=== PATIENT | female | born 1940 | race Caucasian/White ===

== ENCOUNTER → 2016-04-09 | Outpatient (CLI) | payer MEDICARE, BC ==
--- NOTE | 2016-04-10 10:49 | MM ---
Reason for exam: screening (asymptomatic). Last mammogram was performed 4 years and 6 months ago. History: Patient is postmenopausal. Family history of premenopausal breast cancer in mother. Benign stereotactic core biopsy of the right breast, May 10, 1998. Benign core biopsy of the right breast. 2 benign excisional biopsies of the right breast. Physical Findings: A clinical breast exam by your physician is recommended on an annual basis and results should be correlated with mammographic findings. MG 3D Screening Mammo W/Cad Bilateral CC and MLO view(s) were taken. Prior study comparison: October 15, 2011, bilateral digital screening mammo w/CAD. October 07, 2010, bilateral digital screening mammo w/CAD. Finding #1: There is a 5 mm high density, irregular mass in the left breast. Finding #2: There are typically benign calcifications in both breasts. Previous mammotome biopsy in the right breast. There is a chronic nodularity in the right breast, stable. ASSESSMENT: Incomplete: need additional imaging evaluation, BI-RAD 0 RECOMMENDATION: Special view mammogram of the left breast. If lesion persists on supplemental views, image directed ultrasound is recommended. [facility] will attempt to contact patient to return for supplemental views and ultrasound if indicated.
== END ==
LOC: RADMAMWWP 11:44
PROVIDERS: ATTEND Family Medicine
DX: Z12.31 Encounter for screening mammogram for malignant neoplasm of breast (principal); R92.8 Other abnormal and inconclusive findings on diagnostic imaging of breast
CPT/HCPCS: 77063; G0202

== ENCOUNTER → 2016-04-11 | Outpatient (CLI) | payer MEDICARE, BC ==
--- NOTE | 2016-04-11 08:52 | MM ---
Reason for exam: additional evaluation requested from abnormal screening. Last mammogram was performed less than 1 month ago. History: Patient is postmenopausal. Family history of premenopausal breast cancer in mother. Benign stereotactic core biopsy of the right breast, May 10, 1998. Benign core biopsy of the right breast. 2 benign excisional biopsies of the right breast. Physical Findings: Nurse did not find any significant physical abnormalities on exam. MG 3D Work Up W/Cad LT ML, XCCM, and spot compression CC view(s) were taken of the left breast. Prior study comparison: April 09, 2016, bilateral MG 3d screening mammo w/cad. October 15, 2011, bilateral digital screening mammo w/CAD. Density in question is less conspicuous for which a 6 month follow up is recommended. These results were verbally communicated with the patient and result sheet given to the patient on 04/11/16. ASSESSMENT: Probably benign, BI-RAD 3 RECOMMENDATION: Follow-up diagnostic mammogram of the left breast in 6 months.
== END | disposition home or self-care (01) ==
LOC: RADMAMWWP 07:30
PROVIDERS: ATTEND Family Medicine
DX: R92.8 Other abnormal and inconclusive findings on diagnostic imaging of breast (principal)
CPT/HCPCS: G0206; G0279

== ENCOUNTER → 2016-10-15 | Outpatient (CLI) | payer MEDICARE, BC ==
--- NOTE | 2016-10-15 10:30 | MM ---
Reason for exam: follow-up at short interval from prior study. Last mammogram was performed 6 months ago. History: Patient is postmenopausal. Family history of premenopausal breast cancer in mother. Benign stereotactic core biopsy of the right breast, May 10, 1998. Benign core biopsy of the right breast. 2 benign excisional biopsies of the right breast. Physical Findings: Nurse did not find any significant physical abnormalities on exam. MG 3D Diag Mammo W/Cad LT CC and MLO view(s) were taken of the left breast. Prior study comparison: April 11, 2016, left breast MG 3d work up w/cad LT. April 09, 2016, bilateral MG 3d screening mammo w/cad. October 15, 2011, bilateral digital screening mammo w/CAD. There are scattered fibroglandular densities. Finding: There are few typically benign round calcifications in the left breast. Asymmetric breast tissue in the left central position, stable. These results were verbally communicated with the patient and result sheet given to the patient on 10/15/16. ASSESSMENT: Benign, BI-RAD 2 RECOMMENDATION: Return to routine screening mammogram schedule for both breasts. Back on schedule.
== END ==
LOC: RADMAMWWP 08:57
PROVIDERS: ATTEND Family Medicine
DX: R92.8 Other abnormal and inconclusive findings on diagnostic imaging of breast (principal)
CPT/HCPCS: G0206; G0279

== ENCOUNTER → 2017-04-29 | Outpatient (CLI) | payer MEDICARE, BC ==
--- NOTE | 2017-04-29 17:20 | US ---
EXAMINATION TYPE: US kidneys/renal and bladder DATE OF EXAM: 04/29/2017 COMPARISON: NONE CLINICAL HISTORY: CKD N18.9. CKD EXAM MEASUREMENTS: Right Kidney: 11.0 x 4.2 x 4.7 cm Left Kidney: 11.1 x 5.4 x 3.9 cm Right Kidney: possible parapelvic cystic area = 1.5cm Left Kidney: lobulated contour Bladder: not fully distended, appears wnl Bilateral Jets seen: yes CONCLUSION: There is a cyst in the interpolar right kidney. No evidence of solid renal mass. No evidence of renal obstruction.
== END | disposition home or self-care (01) ==
LOC: RADUSWWP 15:58
PROVIDERS: ATTEND Family Medicine
DX: N28.1 Cyst of kidney, acquired (principal)
CPT/HCPCS: 76770

== ENCOUNTER 2018-12-22 12:15 | Inpatient (IN) | payer MEDICARE, BC ==
--- NOTE | 2018-12-22 13:34 | ED ---
SOB HPI - General Chief Complaint: Shortness of Breath Stated Complaint: Chest Pain Time Seen by Provider: 12/22/18 12:40 Source: patient, RN notes reviewed, old records reviewed Mode of arrival: wheelchair Limitations: no limitations - History of Present Illness Initial Comments: This is a 70-year-old female sent in from with his office for evaluation today. Patient presents to us today for evaluation regards to shortness of breath and chest pain. Patient had EKG which was unchanged from her normal EKG at doctor's office this DrDale Elena is sent patient to emergency room. No history of high blood pressure does have high cholesterol nonsmoker. No significant family history of heart disease. No recent cardiac evaluation. Patient denies recent cough or congestion no significant recent fatigue. Patient currently denies shortness of breath or chest pain while sitting still in the chair, symptoms are with exertion MD Complaint: shortness of breath, chest pain -: days(s) Severity: mild Severity scale (1-10): 3 Quality: aching Consistency: intermittent, now resolved Improves With: nothing Worsens With: exertion Associated Symptoms: chest pain, pain with inspiration Treatments Prior to Arrival: none - Related Data Home Medications Medication Instructions Recorded Confirmed ALPRAZolam [Xanax] 1 mg PO TID PRN 12/22/18 12/22/18 Cyclobenzaprine HCl 10 mg PO TID PRN 12/22/18 12/22/18 FLUoxetine HCL [PROzac] 40 mg PO HS 12/22/18 12/22/18 HYDROcodone/APAP 7.5-325MG [[place] 1 tab PO DAILY PRN 12/22/18 12/22/18 7.5-325] Ibuprofen 800 mg PO QID PRN 12/22/18 12/22/18 Simvastatin 40 mg PO HS 12/22/18 12/22/18 Allergies Allergy/AdvReac Type Severity Reaction Status Date / Time Iodinated Contrast Media Allergy Rash/Hives Verified 12/22/18 13:08 Review of Systems ROS Statement: Those systems with pertinent positive or pertinent negative responses have been documented in the HPI. ROS Other: All systems not noted in ROS Statement are negative. Past Medical History Additional Past Medical History / Comment(s): chronic back pain History of Any Multi-Drug Resistant Organisms: None Reported Past Surgical History: Hysterectomy, Tonsillectomy Past Psychological History: Anxiety Smoking Status: Current every day smoker Past Alcohol Use History: Occasional Past Drug Use History: None Reported General Exam Limitations: no limitations General appearance: alert, in no apparent distress Head exam: Present: atraumatic, normocephalic, normal inspection Eye exam: Present: normal appearance, PERRL, EOMI. Absent: scleral icterus, conjunctival injection, periorbital swelling ENT exam: Present: normal exam, mucous membranes moist Neck exam: Present: normal inspection. Absent: tenderness, meningismus, lymphadenopathy Respiratory exam: Present: normal lung sounds bilaterally. Absent: respiratory distress, wheezes, rales, rhonchi, stridor Cardiovascular Exam: Present: regular rate, normal rhythm, normal heart sounds. Absent: systolic murmur, diastolic murmur, rubs, gallop, clicks GI/Abdominal exam: Present: soft, normal bowel sounds. Absent: distended, tenderness, guarding, rebound, rigid Extremities exam: Present: normal inspection, full ROM, normal capillary refill. Absent: tenderness, pedal edema, joint swelling, calf tenderness Back exam: Present: normal inspection Neurological exam: Present: alert, oriented X3, CN II-XII intact Psychiatric exam: Present: normal affect, normal mood Skin exam: Present: warm, dry, intact, normal color. Absent: rash Course Vital Signs 12/22/18 12/22/18 12/22/18 12:20 12:43 12:46 Temperature 97.7 F Pulse Rate 66 68 Respiratory 18 27 H 16 Rate Blood Pressure 87/58 109/66 O2 Sat by Pulse 98 99 Oximetry 12/22/18 12/22/18 12/22/18 12:50 13:20 13:30 Temperature Pulse Rate 58 L 52 L 66 Respiratory 22 20 20 Rate Blood Pressure 103/66 108/73 102/74 O2 Sat by Pulse 96 98 95 Oximetry 12/22/18 12/22/18 12/22/18 13:40 13:50 14:00 Temperature Pulse Rate 55 L 61 61 Respiratory 14 18 20 Rate Blood Pressure 95/73 113/73 120/76 O2 Sat by Pulse 97 97 94 L Oximetry 12/22/18 14:10 Temperature Pulse Rate 65 Respiratory 20 Rate Blood Pressure 95/72 O2 Sat by Pulse 96 Oximetry - Reevaluation(s) Reevaluation #1: 12/22/18 13:46 Medical records reviewed Reevaluation #2: 12/22/18 16:[address] Mann, he did come to ER to evaluate patient requesting echo and will take patient to the [facility] Reevaluation #3: 12/22/18 16:17 Does appear for further questioning 2 days ago patient had an episode where she was passed out and had some chest pain this is likely what she sustained her cardiac event Reevaluation #4: 12/22/18 16:18 The patient updated on results and questions answered - Consultations Consultation #1: Spoke with Dr. Moreno and who is aware of patient's lab values an admission Medical Decision Making - Medical Decision Making 78 female the ER for evaluation of weakness, patient was sent in for evaluation regarding abnormal outpatient EKG. Patient is significantly elevated troponin here in the ER cardiology will take patient to laborer hoisting for subacute [place]. - Lab Data Result diagrams: 12/22/18 13:29 12/22/18 13:29 Lab Results 12/22/18 12/22/18 12/22/18 Range/Units 13:29 13:29 13:29 WBC 11.1 H (3.8-10.6) k/uL RBC 3.85 (3.80-5.40) m/uL Hgb 12.1 (11.4-16.0) gm/dL Hct 36.4 (34.0-46.0) % MCV 94.7 (80.0-100.0) fL MCH 31.4 (25.0-35.0) pg MCHC 33.1 (31.0-37.0) g/dL RDW 12.9 (11.5-15.5) % Plt Count 291 (150-450) k/uL Neutrophils % 75 % Lymphocytes % 16 % Monocytes % 6 % Eosinophils % 0 % Basophils % 0 % Neutrophils # 8.3 H (1.3-7.7) k/uL Lymphocytes # 1.8 (1.0-4.8) k/uL Monocytes # 0.7 (0-1.0) k/uL Eosinophils # 0.1 (0-0.7) k/uL Basophils # 0.0 (0-0.2) k/uL PT (9.0-12.0) sec INR (<1.2) APTT (22.0-30.0) sec Sodium 136 L (137-145) mmol/L Potassium 4.3 (3.5-5.1) mmol/L Chloride 105 (98-107) mmol/L Carbon Dioxide 20 L (22-30) mmol/L Anion Gap 11 mmol/L BUN 28 H (7-17) mg/dL Creatinine 1.57 H (0.52-1.04) mg/dL Est GFR (CKD-EPI)AfAm 36 (>60 ml/min/1.73 sqM) Est GFR (CKD-EPI)NonAf 31 (>60 ml/min/1.73 sqM) Glucose 109 H (74-99) mg/dL Calcium 9.6 (8.4-10.2) mg/dL Magnesium 2.2 (1.6-2.3) mg/dL Total Bilirubin 0.7 (0.2-1.3) mg/dL AST 116 H (14-36) U/L ALT 54 H (9-52) U/L Alkaline Phosphatase 87 (38-126) U/L Creatine Kinase 825 H (30-135) U/L CK-MB (CK-2) (0.0-2.4) ng/mL Troponin I (0.000-0.034) ng/mL NT-Pro-B Natriuret Pep 7500 pg/mL Total Protein 7.0 (6.3-8.2) g/dL Albumin 4.3 (3.5-5.0) g/dL 12/22/18 12/22/18 12/22/18 Range/Units 13:29 13:29 13:29 WBC (3.8-10.6) k/uL RBC (3.80-5.40) m/uL Hgb (11.4-16.0) gm/dL Hct (34.0-46.0) % MCV (80.0-100.0) fL MCH (25.0-35.0) pg MCHC (31.0-37.0) g/dL RDW (11.5-15.5) % Plt Count (150-450) k/uL Neutrophils % % Lymphocytes % % Monocytes % % Eosinophils % % Basophils % % Neutrophils # (1.3-7.7) k/uL Lymphocytes # (1.0-4.8) k/uL Monocytes # (0-1.0) k/uL Eosinophils # (0-0.7) k/uL Basophils # (0-0.2) k/uL PT 9.9 (9.0-12.0) sec INR 0.9 (<1.2) APTT 24.8 (22.0-30.0) sec Sodium (137-145) mmol/L Potassium (3.5-5.1) mmol/L Chloride (98-107) mmol/L Carbon Dioxide (22-30) mmol/L Anion Gap mmol/L BUN (7-17) mg/dL Creatinine (0.52-1.04) mg/dL Est GFR (CKD-EPI)AfAm (>60 ml/min/1.73 sqM) Est GFR (CKD-EPI)NonAf (>60 ml/min/1.73 sqM) Glucose (74-99) mg/dL Calcium (8.4-10.2) mg/dL Magnesium (1.6-2.3) mg/dL Total Bilirubin (0.2-1.3) mg/dL AST (14-36) U/L ALT (9-52) U/L Alkaline Phosphatase (38-126) U/L Creatine Kinase (30-135) U/L CK-MB (CK-2) 39.9 H (0.0-2.4) ng/mL Troponin I 19.600 H* (0.000-0.034) ng/mL NT-Pro-B Natriuret Pep pg/mL Total Protein (6.3-8.2) g/dL Albumin (3.5-5.0) g/dL - EKG Data -: EKG Interpreted by Me (EKG shows junctional rhythm rate of 65, QRS 92, QTc 4:30) - Radiology Data Radiology results: report reviewed (Chest x-rays negative for acute disease), image reviewed Critical Care Time Critical Care Time: Yes Total Critical Care Time: 31 Disposition Clinical Impression: Acute [place], inferior wall, NSTEMI (non-ST elevated myocardial infarction) Disposition: ADMITTED IP TO THIS [facility] Condition: Serious Is patient prescribed a controlled substance at d/c from ED?: No Referrals: Geovanni Elena MD [Primary Care Provider] - 1-2 days
[2018-12-22] MEDS ORDERED: SODIUM CHLORIDE 0.9% 1,000 ML IV STA (13:39)
[2018-12-22 13:51] LABS: Basophils % (A) 0 %; Eosinophils # (A) 0.1 k/uL (0-0.7); Eosinophils % (A) 0 %; HCT 36.4 % (34.0-46.0); HGB 12.1 gm/dL (11.4-16.0); Lymphocytes # (A) 1.8 k/uL (1.0-4.8); Lymphocytes % (A) 16 %; MCH 31.4 pg (25.0-35.0); MCHC 33.1 g/dL (31.0-37.0); MCV 94.7 fL (80.0-100.0); Mean Platelet Volume 6.6; Monocytes # (A) 0.7 k/uL (0-1.0); Monocytes % (A) 6 %; Neutrophils # (A) 8.3 k/uL (1.3-7.7); Neutrophils % (A) 75 %; Platelet Count 291 k/uL (150-450); RBC 3.85 m/uL (3.80-5.40); RDW 12.9 % (11.5-15.5); WBC 11.1 k/uL (3.8-10.6)
[2018-12-22 14:01] LABS: Albumin 4.3 g/dL (3.5-5.0); Calcium 9.6 mg/dL (8.4-10.2); Magnesium 2.2 mg/dL (1.6-2.3); Potassium 4.3 mmol/L (3.5-5.1); Total Bilirubin 0.7 mg/dL (0.2-1.3)
[2018-12-22 14:02] LABS: INR 0.9 (<1.2); Partial Thromboplastin Time 24.8 sec (22.0-30.0); Prothrombin Time 9.9 sec (9.0-12.0)
--- NOTE | 2018-12-22 14:30 | XR ---
EXAMINATION TYPE: XR chest 2V DATE OF EXAM: 12/22/2018 COMPARISON: NONE HISTORY: Shortness of breath and chest pain. TECHNIQUE: Frontal and lateral views of the chest are obtained. FINDINGS: There is chronic parenchymal changes without suspicious focal air space opacity, pleural e ffusion, or pneumothorax seen. The cardiac silhouette size is upper limits of normal with atheroscle rotic and ectatic aorta. The osseous structures are intact. IMPRESSION: Chronic changes without acute pulmonary process.
--- NOTE | 2018-12-22 16:04 | ECHOF ---
Referral Reason:elevTroponin MEASUREMENTS -------- HEIGHT: 167.6 cm WEIGHT: 78.5 kg BP: RVIDd: 3.3 cm (< 3.3) IVSd: 1.5 cm (0.6 - 1.1) LVIDd: 4.0 cm (3.9 - 5.3) LVPWd: 1.2 cm (0.6 - 1.1) IVSs: 1.9 cm LVIDs: 2.8 cm LVPWs: 1.6 cm LA Diam: 2.8 cm (2.7 - 3.8) LAESV Index (A-L): 30.92 ml/m Ao Diam: 3.8 cm (2.0 - 3.7) AV Cusp: 2.0 cm (1.5 - 2.6) MV EXCURSION: 13.362 mm (> 18.000) MV EF SLOPE: 46 mm/s (70 - 150) EPSS: 0.8 cm MV E Ron: 0.78 m/s MV DecT: 378 ms MV A Ron: 0.94 m/s MV E/A Ratio: 0.82 RAP: 5.00 mmHg RVSP: 20.77 mmHg TAPSE: 15.29 mm FINDINGS -------- Sinus rhythm. This was a technically good study. The left ventricular size is normal. There is moderate concentric left ventricular hypertrophy. O verall left ventricular systolic function is normal with, an EF between 60 - 65 %.There is mild hypok inesia of inferior wall. There is mild hypokinesia of inferior wall The right ventricle is normal in size. LA is midly dilated 29-33ml/m2. The right atrium is normal in size. Aneurysmal Interatrial septum. There is mild aortic valve sclerosis. Mild mitral annular calcification present. There is trace mitral regurgitation. Mild tricuspid regurgitation present. Right ventricular systolic pressure is normal at < 35 mmHg. Trace/mild (physiologic) pulmonic regurgitation. The aortic root is dilated measuring 3.8cm. Normal inferior vena cava with normal inspiratory collapse consistent with estimated right atrial pre ssure of 5 mmHg. The inferior vena cava is mildly dilated. There is no pericardial effusion. CONCLUSIONS -------- 1. Sinus rhythm. 2. This was a technically good study. 3. The left ventricular size is normal. 4. There is moderate concentric left ventricular hypertrophy. 5. Overall left ventricular systolic function is normal with, an EF between 60 - 65 %. 6. There is mild hypokinesia of inferior wall 7. The right ventricle is normal in size. 8. LA is midly dilated 29-33ml/m2. 9. The right atrium is normal in size. 10. Aneurysmal Interatrial septum. 11. There is mild aortic valve sclerosis. 12. Mild mitral annular calcification present. 13. There is trace mitral regurgitation. 14. Mild tricuspid regurgitation present. 15. Right ventricular systolic pressure is normal at < 35 mmHg. 16. Trace/mild (physiologic) pulmonic regurgitation. 17. The aortic root is dilated measuring 3.8cm. 18. Normal inferior vena cava with normal inspiratory collapse consistent with estimated right atrial pressure of 5 mmHg. 19. The inferior vena cava is mildly dilated. 20. There is no pericardial effusion. [employer]: Zena Farmer RDCS
[2018-12-22] MEDS ORDERED: NITROGLYCERIN SL TABS 0.4 MG TAB SUBLINGUAL PRN ×2 (16:08→16:15)
[2018-12-22] MEDS ORDERED: ALPRAZolam 0.25 MG TAB PO PRN (16:08)
[2018-12-22] MEDS ORDERED: ATORVASTATIN 80 MG TAB PO STA (16:08)
[2018-12-22] MEDS ORDERED: ASPIRIN 325 MG TAB PO STA (16:08)
[2018-12-22] MEDS ORDERED: HEPARIN SOD,PORK IN 0.45% NACL 25,000 UNIT in 0.45% NACL 1 250ML.BAG IV SCH (16:15)
[2018-12-22] MEDS ORDERED: HEPARIN SODIUM,PORCINE 5,000 UNIT/ML 1 ML VIAL IV ONE (16:15)
[2018-12-22] MEDS ORDERED: HEPARIN SODIUM,PORCINE 5,000 UNIT/ML 1 ML VIAL IV PRN (16:15)
--- NOTE | 2018-12-22 16:15 | P.CRDCN ---
History of Present Illness Consult date: 12/22/18 History of present illness: This is a 78-year-old female with history of smoking without any significant past medical history has been experiencing fatigue and exertional shortness of breath for the last month. Thursday is about 3 days ago she [place] the mall and developed severe shortness of breath, dizziness and also some heaviness in the arms and some chest pain. She was sweating and she thought she may . Since then patient has been having exertional shortness of breath and also heaviness in the arms and some chest pain, especially when she takes deep breath. She went to see Dr. Mack in his EKG showed evidence of possible subacute inferior wall NM with persistent mild ST elevation and Q waves in inferior leads. Her lab work showed troponin values of 19. Her creatinine is about 1.5. Chest x-ray did not reveal any overt CHF. However her proBNP is 7500. Echocardiogram bedside showed almost preserved LV function is sized to a mild hypokinesis of the inferobasal segment. Patient is advised to have a cardiac catheterization for definitive diagnosis. Patient and family were explained the risks and benefits of the procedure. Review of Systems As per the chart Past Medical History Additional Past Medical History / Comment(s): chronic back pain History of Any Multi-Drug Resistant Organisms: None Reported Past Surgical History: Hysterectomy, Tonsillectomy Past Psychological History: Anxiety Smoking Status: Current every day smoker Past Alcohol Use History: Occasional Past Drug Use History: None Reported Medications and Allergies Home Medications Medication Instructions Recorded Confirmed Type ALPRAZolam [Xanax] 1 mg PO TID PRN 12/22/18 12/22/18 History Cyclobenzaprine HCl 10 mg PO TID PRN 12/22/18 12/22/18 History FLUoxetine HCL [PROzac] 40 mg PO HS 12/22/18 12/22/18 History HYDROcodone/APAP 7.5-325MG [[place] 1 tab PO DAILY PRN 12/22/18 12/22/18 History 7.5-325] Ibuprofen 800 mg PO QID PRN 12/22/18 12/22/18 History Simvastatin 40 mg PO HS 12/22/18 12/22/18 History Allergies Allergy/AdvReac Type Severity Reaction Status Date / Time Iodinated Contrast Media Allergy Rash/Hives Verified 12/22/18 13:08 Physical Exam Vitals: Vital Signs Temp Pulse Resp BP Pulse Ox 12/22/18 14:10 65 20 95/72 96 12/22/18 14:00 61 20 120/76 94 L 12/22/18 13:50 61 18 113/73 97 12/22/18 13:40 55 L 14 95/73 97 12/22/18 13:30 66 20 102/74 95 12/22/18 13:20 52 L 20 108/73 98 12/22/18 12:50 58 L 22 103/66 96 12/22/18 12:46 68 16 109/66 99 12/22/18 12:43 27 H 12/22/18 12:20 97.7 F 66 18 87/58 98 Intake and Output 12/22/18 12/22/18 12/22/18 06:59 14:59 22:59 Other: Weight 78.471 kg GENERAL EXAM: Patient is alert and oriented and doesn't appear to be in any acute distress but complains of some chest pain and shortness of breath HEENT: Normocephalic. Normal reaction of pupils, equal size, normal range of extraocular motion. No erythema or exudates in the throat. NECK: No masses, no nuchal rigidity. CHEST: No chest wall deformity. LUNGS: Equal air entry with no crackles or wheeze. HEART: S1 and S2 normal with no audible mumurs or gallops. Regular rhythm, femorals equal on both sides.. ABDOMEN: No hepatosplenomegaly, normal bowel sounds, no guarding or rigidity. SKIN: No rashes CENTRAL NERVOUS SYSTEM: No focal deficits. EXTREMITIES: No cyanosis, clubbing or edema. Results 12/22/18 13:29 12/22/18 13:29 Cardiac Enzymes 12/22/18 12/22/18 12/22/18 Range/Units 13:29 13:29 13:29 AST 116 H (14-36) U/L CK-MB (CK-2) 39.9 H (0.0-2.4) ng/mL Troponin I 19.600 H* (0.000-0.034) ng/mL Coagulation 12/22/18 Range/Units 13:29 PT 9.9 (9.0-12.0) sec APTT 24.8 (22.0-30.0) sec CBC 12/22/18 Range/Units 13:29 WBC 11.1 H (3.8-10.6) k/uL RBC 3.85 (3.80-5.40) m/uL Hgb 12.1 (11.4-16.0) gm/dL Hct 36.4 (34.0-46.0) % Plt Count 291 (150-450) k/uL Comprehensive Metabolic Panel 12/22/18 Range/Units 13:29 Sodium 136 L (137-145) mmol/L Potassium 4.3 (3.5-5.1) mmol/L Chloride 105 (98-107) mmol/L Carbon Dioxide 20 L (22-30) mmol/L BUN 28 H (7-17) mg/dL Creatinine 1.57 H (0.52-1.04) mg/dL Glucose 109 H (74-99) mg/dL Calcium 9.6 (8.4-10.2) mg/dL AST 116 H (14-36) U/L ALT 54 H (9-52) U/L Alkaline Phosphatase 87 (38-126) U/L Total Protein 7.0 (6.3-8.2) g/dL Albumin 4.3 (3.5-5.0) g/dL Current Medications Generic Name Dose Route Start Last Admin Trade Name Freq PRN Reason Stop Dose Admin Sodium Chloride 1,000 mls @ 70 mls/hr 12/22/18 13:39 12/22/18 13:46 Saline 0.9% IV 12/23/18 03:56 100 mls/hr .[id number] STA Administration Intake and Output 12/22/18 12/22/18 12/22/18 06:59 14:59 22:59 Other: Weight 78.471 kg Patient Weight 12/23/18 06:59 Weight 78.471 kg 12/22/18 13:29 12/22/18 13:29 EKG Interpretations (text) Sinus rhythm with evidence of subacute inferior wall NM Assessment and Plan (1) Acute NM, inferior wall Current Visit: Yes Status: Acute Code(s): I21.19 - STEMI INVOLVING OTH CORONARY ARTERY OF INFERIOR WALL SNOMED Code(s): 49883610 (2) Hypotension Current Visit: Yes Status: Acute Code(s): I95.9 - HYPOTENSION, UNSPECIFIED SNOMED Code(s): 19960069 (3) Smoking Current Visit: Yes Status: Acute Code(s): F17.200 - NICOTINE DEPENDENCE, UNSPECIFIED, UNCOMPLICATED SNOMED Code(s): 43640243 (4) Renal failure Current Visit: Yes Status: Acute Code(s): N19 - UNSPECIFIED KIDNEY FAILURE SNOMED Code(s): 31570057 (5) Hypercholesterolemia Current Visit: Yes Status: Acute Code(s): E78.00 - PURE HYPERCHOLESTEROLEMIA, UNSPECIFIED SNOMED Code(s): 74959943 Plan: Will proceed with cardiac catheterization for definitive diagnosis. Meanwhile we'll treat her with aspirin, lipid-lowering agent. Beta blockers are not given, because of low blood pressure. Echo is already done
[2018-12-22] MEDS ORDERED: VERAPAMIL 2.5 MG/ML 2 ML AMP ONE (16:31)
[2018-12-22] MEDS ORDERED: LIDOCAINE 1% INJ 10MG/ML (20 ML MDV) ONE (16:32)
[2018-12-22] MEDS ORDERED: HEPARIN SODIUM 1,000 UN/ML (10ML VL) ONE (16:32)
[2018-12-22] MEDS ORDERED: fentaNYL (PF) 50 MCG/ML 2 ML AMP ONE (16:32)
[2018-12-22] MEDS ORDERED: ASPIRIN 325 MG TAB ONE (16:38)
[2018-12-22] MEDS ORDERED: IV FLUID CONTINUATION 300 ML IV ONE (16:40)
[2018-12-22] MEDS ORDERED: diphenhydrAMINE 50 MG/ML 1 ML VIAL ONE (16:44)
[2018-12-22] MEDS ORDERED: methylPREDNISolone SOD SUCCI 125 MG/2 ML VIAL ONE (16:44)
[2018-12-22] MEDS ORDERED: MIDAZOLAM (PF) 2 MG/2 ML VIAL IV ONE (16:54)
[2018-12-22] MEDS ORDERED: fentaNYL (PF) 50 MCG/ML 2 ML AMP IV ONE (16:54)
[2018-12-22] MEDS ORDERED: ASPIRIN 325 MG TAB PO ONE (16:55)
[2018-12-22] MEDS ORDERED: diphenhydrAMINE 50 MG/ML 1 ML VIAL IVP ONE (16:55)
[2018-12-22] MEDS ORDERED: methylPREDNISolone SOD SUCCI 125 MG/2 ML VIAL IV ONE (16:55)
[2018-12-22] MEDS ORDERED: LIDOCAINE 1% INJ 10MG/ML (20 ML MDV) SQ ONE (16:56)
[2018-12-22] MEDS ORDERED: IOPAMIDOL-300 50ML BTL INJ ONE (17:24)
[2018-12-22] MEDS ORDERED: IOPAMIDOL-370 125ML BTL INJ ONE (17:24)
--- NOTE | 2018-12-22 17:26 | HP ---
HISTORY AND PHYSICAL CHIEF COMPLAINT: Weakness, shortness of breath and heaviness in the arms. HISTORY OF PRESENT ILLNESS: This lady presented to the office on the day of admission with feeling weak and tired and her arms felt heavy. She is not a good historian. She denied chest pain. However, after going into more detail with the history and upon reviewing her EKG, she stated that 2 or 3 days ago she had been at a grocery store and suddenly felt very weak, washed out, faint and diaphoretic. She was short of breath. She had to sit down. She stated that she did not really have chest pain, but when asked about jaw pain, she stated that she had had some discomfort just below the ears. She had no discomfort in the arms or back. She came to the office, where she looked pale and her blood pressure was 80. EKG demonstrated some changes in the inferior leads compared to her 2019 EKG. X-ray of the chest was normal. It was determined that she should be admitted for evaluation and workup of her symptoms, including her hypotension. She has had no syncope, evidence of bleeding, nausea, vomiting, diarrhea, etc. REVIEW OF SYSTEMS: She has had no focal neurologic problems, hemoptysis, abdominal pain, nausea, vomiting, melena, hematochezia, jaundice, hematuria, frequency, urgency, dysuria, etc. Past medical history, family history, and personal and social histories reveal that she is a very heavy smoker and has hyperlipidemia. Blood pressure is usually not a problem. Medications include: 1. Simvastatin 40 mg at bedtime. 2. [place] 7.5 q.i.d. p.r.n. for back and arthritis problems. 3. Ibuprofen 800 mg. 4. Fluoxetine 20 mg 2 a day. 5. Xanax 1 mg 3 times a day p.r.n. Surgically she has had a hysterectomy and T&A. She is a heavy smoker and drinks alcohol occasionally. PHYSICAL EXAMINATION: Blood pressure 80/60 with a pulse of 50 and respirations of 20. In general she appeared to be pale and acutely ill. Skin was dry. Head, ears, eyes, nose, mouth and throat were normal. Neck veins were not distended. Carotids normal. Chest is clear. Cardiac exam demonstrated slight bradycardia and no murmurs or extra sounds. Abdomen is soft, nontender and there is no visceromegaly or masses. Bowel sounds are present. Extremities normal. Neurologically she is intact. She is admitted to the hospital with the diagnoses: 1. Hypotension, etiology unknown. 2. Chronic obstructive pulmonary disease. PLAN: 1. Bed rest. 2. IV fluids. 3. Monitor and support blood pressure as needed. 4. Cardiac enzymes. 5. Neurologic workup. 6. Consult with Cardiology. MMGREGORYL / GNEIN: [id number] /
[2018-12-22] MEDS ORDERED: RX INFO: IV CONTRAST WAS GIVEN 1 EACH MISC MISCELLANE PRN (17:31)
--- NOTE | 2018-12-22 17:39 | P.CARDCATH ---
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 Her EKG showed mild ST elevation in inferior leads with small Q waves. Troponin was 19. Creatinine was 1.58. Patient is advised to have cardiac catheterization for definitive diagnosis and possible intervention. CONSENT:I have discussed the risks, benefits and alternative therapies for the above-mentioned procedure and for both sedation/analgesia as well as necessary blood product administration, if indicated, as they pertain to this patient. The patient has indicated understanding and acceptance of the risks and procedures discussed. PROCEDURE: Patient was brought to the lab in a fasting state. Patient was given some IV sedation. The right groin is infiltrated with lidocaine and right femoral artery was entered using Seldinger technique. A 6-[place] catheter was left in place and selective coronary arteriography and aortic root. was performed. Patient tolerated the procedure well. Femoral angiogram was performed and Angio-Seal was applied for hemostasis. No immediate complications were noted and patient was transferred to [facility] in a stable condition Conscious Sedation: Versed 1mg Fentanyl 50 g Duration 31minutes HEMODYNAMICS: The aortic pressure is about 130/70. Left ventricular end- diastolic pressure was about 8-10. There was no gradient across the aortic valv SELECTIVE CORONARY ARTERIOGRAPHY: LEFT MAIN: Normal length and patent THE LEFT ANTERIOR DESCENDING CORONARY ARTERY: This is a moderate caliber vessel giving rise good-sized septal and diagonal branches. The LAD and branches are free of occlusive disease THE LEFT CIRCUMFLEX AND IS CORONARY ARTERY:. This is a moderate caliber vessel giving rise to good-sized OM branch has some ectatic changes without any significant disease THE RIGHT CORONARY ARTERY:. This seemed to be calcified vessel with is flush occlusion from the aorta. These origin cannot be visualized. Aortic root injection was also performed. There are collaterals from the left to the right coronary artery filling the distal RCA LEFT VENTRICULOGRAPHY: Not performed FINAL IMPRESSION:. Total occlusion of the RCA seemed to be flush at the ostium. Seems to be calcified vessel. There are collaterals from the left of the right PLAN: Maximum medical therapy. Films were reviewed with representative personal service sponsorship coordinator, Dr. NEO Adhikari was present PROGNOSIS: Guarded
[2018-12-22] MEDS: SODIUM CHLORIDE 0.9% 1,000 ML IV SCH ×2 (18:28→18:29)
[2018-12-22] MEDS: ALPRAZolam 0.5 MG TAB PO PRN (20:18)
[2018-12-22] MEDS ORDERED: METOPROLOL TARTRATE 25 MG TAB PO SCH (21:00)
[2018-12-22] MEDS: HYDROcodone/APAP 7.5-325MG 1 EACH TAB PO PRN (21:33)
[2018-12-22] MEDS: FLUoxetine HCL 20 MG CAP PO SCH (22:07)
[2018-12-23 03:48] LABS: Glucose,Whole Blood 162 mg/dL (75-99)
[2018-12-23 04:18] LABS: Glucose,Whole Blood 176 mg/dL (75-99)
[2018-12-23] MEDS ORDERED: SODIUM CHLORIDE 0.9% 1,000 ML IV ONE (04:20)
[2018-12-23] MEDS: DOPamine DRIP 800 MG in WATER FOR INJECTION 1 250ML.BAG IV SCH (04:30)
[2018-12-23] MEDS ORDERED: NALOXONE 0.4 MG/ML 1 ML VIAL IV PRN (04:53)
[2018-12-23] MEDS: IBUPROFEN 800 MG TAB PO PRN (05:08)
[2018-12-23 05:59] LABS: Mean Platelet Volume 7.5; Platelet Count 283 k/uL (150-450)
[2018-12-23 06:12] LABS: Calcium 8.7 mg/dL (8.4-10.2); Potassium 4.4 mmol/L (3.5-5.1)
[2018-12-23] MEDS: PANTOPRAZOLE 40 MG TABLET PO SCH (07:11)
--- NOTE | 2018-12-23 07:25 | XR ---
EXAMINATION TYPE: XR chest 1V DATE OF EXAM: 12/23/2018 COMPARISON: 12/22/2018 HISTORY: COPD and shortness of breath TECHNIQUE: Single frontal view of the chest is obtained. FINDINGS: There is no focal air space opacity, pleural effusion, or pneumothorax seen. Pulmonary hy perinflation of underlying COPD. The cardiac silhouette size is within normal limits. The osseous s tructures are intact. Mild multilevel degenerative changes of the spine. IMPRESSION: No acute process.
[2018-12-23] MEDS: SODIUM CHLORIDE 0.9% 1,000 ML IV SCH ×3 (08:42→21:03)
[2018-12-23] MEDS: ASPIRIN 325 MG TAB PO SCH (09:16)
[2018-12-23] MEDS: ATORVASTATIN 80 MG TAB PO SCH (09:16)
--- NOTE | 2018-12-23 09:33 | P.PN ---
Subjective Progress Note Date: 12/23/18 This is a 78-year-old female who was admitted yesterday after seen by PCP with complaints of chest pain and EKG evidence of subacute inferior wall FL. Her troponin was 19. EKG showed a junctional rhythm also. Cardiac catheterization revealed total occlusion of the RCA at the ostium. Could not engage the ostium. The left coronary system is normal and provides rich collaterals to the RCA. Patient was admitted to the floor. She did get small dose of Lopressor. Patient a bradycardia and hypotension last night. She apparently she also received [place]. Patient was on dopamine and her blood pressure has stabilized. We will discontinue Lopressor and also any nitrates. Continue with aspirin. Slowly titrated down dopamine. Chest x-ray showed normal findings without any evidence of CHF. Lungs appeared to be clear. Heart is regular. Patient activity to be increased Objective - Vital Signs Vital signs: Vital Signs Temp 98.2 F 12/23/18 05:16 Pulse 63 12/23/18 07:00 Resp 18 12/23/18 07:00 BP 113/65 12/23/18 07:00 Pulse Ox 94 L 12/23/18 07:00 Intake & Output 12/22/18 12/23/18 12/23/18 18:59 06:59 18:59 Intake Total 390 266.492 125 Output Total 150 Balance 390 116.492 125 Weight 78.471 kg Intake: IV 150 250 125 0.9 NS 250 125 Intake, IV Titration 16.492 Amount DOPamine DRIP 800 mg In 16.492 Water For Injection 1 250ml.bag @ 5 MCG/KG/MIN 7.357 mls/hr IV .Q24H [facility] Rx#:[id number] Oral 240 Output: Urine 150 Other: Voiding Method Bedpan - Exam GENERAL EXAM: Patient is alert and oriented and doesn't appear to be in any acute distress HEENT: Normocephalic. Normal reaction of pupils, equal size, normal range of extraocular motion. No erythema or exudates in the throat. NECK: No masses, no nuchal rigidity. CHEST: No chest wall deformity. LUNGS: Equal air entry with no crackles or wheeze. HEART: S1 and S2 normal with no audible mumurs or gallops. Regular rhythm, femorals equal on both sides.. ABDOMEN: No hepatosplenomegaly, normal bowel sounds, no guarding or rigidity. SKIN: No rashes CENTRAL NERVOUS SYSTEM: No focal deficits. EXTREMITIES: No cyanosis, clubbing or edema. - Labs CBC & Chem 7: 12/23/18 05:30 12/23/18 05:30 Labs: Abnormal Lab Results - Last 24 Hours (Table) 12/22/18 12/22/18 12/22/18 Range/Units 13:29 13:29 13:29 WBC 11.1 H (3.8-10.6) k/uL Neutrophils # 8.3 H (1.3-7.7) k/uL Sodium 136 L (137-145) mmol/L Chloride (98-107) mmol/L Carbon Dioxide 20 L (22-30) mmol/L BUN 28 H (7-17) mg/dL Creatinine 1.57 H (0.52-1.04) mg/dL Glucose 109 H (74-99) mg/dL POC Glucose (mg/dL) (75-99) mg/dL AST 116 H (14-36) U/L ALT 54 H (9-52) U/L Creatine Kinase 825 H (30-135) U/L CK-MB (CK-2) (0.0-2.4) ng/mL Troponin I 19.600 H* (0.000-0.034) ng/mL HDL Cholesterol (40-60) mg/dL 12/22/18 12/22/18 12/23/18 Range/Units 13:29 19:06 01:43 WBC (3.8-10.6) k/uL Neutrophils # (1.3-7.7) k/uL Sodium (137-145) mmol/L Chloride (98-107) mmol/L Carbon Dioxide (22-30) mmol/L BUN (7-17) mg/dL Creatinine (0.52-1.04) mg/dL Glucose (74-99) mg/dL POC Glucose (mg/dL) (75-99) mg/dL AST (14-36) U/L ALT (9-52) U/L Creatine Kinase (30-135) U/L CK-MB (CK-2) 39.9 H (0.0-2.4) ng/mL Troponin I 14.300 H* 10.500 H* (0.000-0.034) ng/mL HDL Cholesterol (40-60) mg/dL 12/23/18 12/23/18 12/23/18 Range/Units 03:46 04:12 05:30 WBC (3.8-10.6) k/uL Neutrophils # (1.3-7.7) k/uL Sodium (137-145) mmol/L Chloride 110 H (98-107) mmol/L Carbon Dioxide 17 L (22-30) mmol/L BUN 31 H (7-17) mg/dL Creatinine 1.34 H (0.52-1.04) mg/dL Glucose 172 H (74-99) mg/dL POC Glucose (mg/dL) 162 H 176 H (75-99) mg/dL AST (14-36) U/L ALT (9-52) U/L Creatine Kinase (30-135) U/L CK-MB (CK-2) (0.0-2.4) ng/mL Troponin I (0.000-0.034) ng/mL HDL Cholesterol 66 H (40-60) mg/dL Assessment and Plan (1) Acute FL, inferior wall Current Visit: Yes Status: Acute Code(s): I21.19 - STEMI INVOLVING OTH CORONARY ARTERY OF INFERIOR WALL SNOMED Code(s): 41595237 (2) Hypotension Current Visit: Yes Status: Acute Code(s): I95.9 - HYPOTENSION, UNSPECIFIED SNOMED Code(s): 09456444 (3) Smoking Current Visit: Yes Status: Acute Code(s): F17.200 - NICOTINE DEPENDENCE, UNSPECIFIED, UNCOMPLICATED SNOMED Code(s): 30023253 (4) Renal failure Current Visit: Yes Status: Acute Code(s): N19 - UNSPECIFIED KIDNEY FAILURE SNOMED Code(s): 16505981 (5) Hypercholesterolemia Current Visit: Yes Status: Acute Code(s): E78.00 - PURE HYPERCHOLESTEROLEMIA, UNSPECIFIED SNOMED Code(s): 86653110 (6) Bradycardia Current Visit: Yes Status: Acute Code(s): R00.1 - BRADYCARDIA, UNSPECIFIED SNOMED Code(s): 92532503 Plan: Most probably in bradycardia is secondary to beta reese and also inferior wall FL. Currently she is in sinus rhythm. We'll discontinue beta reese and continue IV fluids. Taper off dopamine as tolerated. Increase activity
--- NOTE | 2018-12-23 11:26 | P.CNPUL ---
History of Present Illness Consult date: 12/23/18 Requesting physician: Geovanni Elena Reason for consult: dyspnea, chest pain Chief complaint: Non-ST elevated myocardial infarction, hypotension, bradycardia History of present illness: This is a 78-year-old white female patient of Dr. Elena with past medical history of hyperlipidemia, very heavy smoker, anxiety, chronic back pain, who presented to the hospital on 12/22/2018 with complaints of shortness of breath, chest pain, dizziness, and heaviness in the arms. Patient was also diaphoretic, and she thought she may . Patient apparently has been experiencing fatigue and exertional shortness of breath for the last month. She went to see Dr. Elena and EKG showed evidence of possible subacute inferior wall myocardial infarction with persistent mild ST elevation and Q waves in the inferior leads. Patient's troponins were elevated at 19.6, 14.3, and 10.5, proBNP was elevated at 7500. Echocardiogram showed normal left ventricular systolic function with an EF of 60-65%, mild aortic sclerosis, trace MR, mild TR, and PA systolic was less than 35 mmHg. Chest x-ray was completed showing no acute pulmonary process. Patient had a cardiac cath yesterday on 12/22/2018, and patient was found to have total occlusion of the RCA, he was a calcified vessel, and now there were collaterals from the left and the right. No intervention. Medical management initiated. Apparently last night patient developed hypotension and bradycardia with junctional rhythm. Patient was transferred to the intensive care unit, received a fluid bolus of 1 L, and maintenance IV fluids at 125 ML per hour. Dopamine was started at 5 mics per kilo per minute. She lab work showed acute kidney injury, with BUN of 28 and creatinine of 1.57 on admission slightly improved on today's labs, patient is seen in intensive care unit this morning, she is awake and alert, oriented 3, denies any chest pain, remains on dopamine drip at the same rate, and IV fluids, she is in sinus mechanism with a rate of 60-65, denies any breathing difficulty, she is nonoliguric, no specific complaints. Lung sounds reveal some congestion, patient has a congested cough, she is a chronic smoker. Review of Systems All systems: negative Constitutional: Denies chills, Denies fever Eyes: denies blurred vision, denies pain Ears, nose, mouth and throat: Denies headache, Denies sore throat Cardiovascular: Reports chest pain, Reports dyspnea on exertion, Reports lightheadedness, Denies shortness of breath Respiratory: Denies cough Gastrointestinal: Denies abdominal pain, Denies diarrhea, Denies nausea, Denies vomiting Genitourinary: Denies dysuria, Denies hematuria Musculoskeletal: Denies myalgias Integumentary: Denies pruritus, Denies rash Neurological: Denies numbness, Denies weakness Psychiatric: Denies anxiety, Denies depression Endocrine: Denies fatigue, Denies weight change Past Medical History Additional Past Medical History / Comment(s): chronic back pain History of Any Multi-Drug Resistant Organisms: None Reported Past Surgical History: Hysterectomy, Tonsillectomy Past Psychological History: Anxiety Smoking Status: Current every day smoker Past Alcohol Use History: Occasional Past Drug Use History: None Reported - Past Family History Father Family Medical History: No Reported History Mother Family Medical History: No Reported History Medications and Allergies Home Medications Medication Instructions Recorded Confirmed Type ALPRAZolam [Xanax] 1 mg PO TID PRN 12/22/18 12/22/18 History Cyclobenzaprine HCl 10 mg PO TID PRN 12/22/18 12/22/18 History FLUoxetine HCL [PROzac] 40 mg PO HS 12/22/18 12/22/18 History HYDROcodone/APAP 7.5-325MG [Kelly 1 tab PO DAILY PRN 12/22/18 12/22/18 History 7.5-325] Ibuprofen 800 mg PO QID PRN 12/22/18 12/22/18 History Simvastatin 40 mg PO HS 12/22/18 12/22/18 History Allergies Allergy/AdvReac Type Severity Reaction Status Date / Time Iodinated Contrast Media Allergy Rash/Hives Verified 12/22/18 13:08 Physical Exam Vitals: Vital Signs Temp Pulse Pulse Pulse Resp BP BP 12/23/18 10:30 56 L 19 115/69 12/23/18 10:00 60 11 L 127/85 12/23/18 09:30 62 12 112/77 12/23/18 09:00 60 17 113/68 12/23/18 08:30 62 19 129/75 12/23/18 08:00 98.2 F 62 14 125/72 12/23/18 07:30 61 19 124/68 12/23/18 07:00 63 18 113/65 12/23/18 06:30 61 14 112/65 12/23/18 06:00 82 20 91/55 12/23/18 05:45 53 L 20 96/55 12/23/18 05:30 53 L 18 97/54 12/23/18 05:16 98.2 F 52 L 14 81/51 12/23/18 05:06 43 L 85/54 12/23/18 05:04 42 L 81/49 12/23/18 04:05 98.2 F 14 72/40 12/23/18 03:50 38 L 83/53 12/23/18 03:45 45 L 81/57 12/23/18 03:35 44 L 77/52 12/23/18 03:30 39 L 78/51 12/23/18 03:25 41 L 74/51 12/23/18 03:20 40 L 79/50 12/23/18 03:15 42 L 81/49 12/23/18 03:10 44 L 75/50 12/23/18 03:05 49 L 73/49 12/23/18 00:05 98.3 F 54 L 16 95/59 12/22/18 20:10 98.3 F 83 16 128/60 12/22/18 19:59 98.2 F 16 12/22/18 19:16 98.2 F 16 107/73 12/22/18 18:46 16 117/69 12/22/18 18:16 16 116/72 12/22/18 18:01 16 124/75 12/22/18 16:28 66 16 138/82 12/22/18 14:10 65 20 95/72 12/22/18 14:00 61 20 120/76 12/22/18 13:50 61 18 113/73 12/22/18 13:40 55 L 14 95/73 12/22/18 13:30 66 20 102/74 12/22/18 13:20 52 L 20 108/73 12/22/18 12:50 58 L 22 103/66 12/22/18 12:46 68 16 109/66 12/22/18 12:43 27 H 12/22/18 12:20 97.7 F 66 18 87/58 Pulse Ox 12/23/18 10:30 96 12/23/18 10:00 95 12/23/18 09:30 96 12/23/18 09:00 95 12/23/18 08:30 93 L 12/23/18 08:00 96 12/23/18 07:30 95 12/23/18 07:00 94 L 12/23/18 06:30 94 L 12/23/18 06:00 94 L 12/23/18 05:45 94 L 12/23/18 05:30 93 L 12/23/18 05:16 93 L 12/23/18 05:06 12/23/18 05:04 12/23/18 04:05 92 L 12/23/18 03:50 12/23/18 03:45 12/23/18 03:35 12/23/18 03:30 12/23/18 03:25 12/23/18 03:20 12/23/18 03:15 12/23/18 03:10 12/23/18 03:05 12/23/18 00:05 93 L 12/22/18 20:10 98 12/22/18 19:59 12/22/18 19:16 94 L 12/22/18 18:46 96 12/22/18 18:16 12/22/18 18:01 97 12/22/18 16:28 100 12/22/18 14:10 96 12/22/18 14:00 94 L 12/22/18 13:50 97 12/22/18 13:40 97 12/22/18 13:30 95 12/22/18 13:20 98 12/22/18 12:50 96 12/22/18 12:46 99 12/22/18 12:43 12/22/18 12:20 98 Intake and Output 12/22/18 12/23/18 12/23/18 22:59 06:59 14:59 Intake Total 390 266.492 450 Output Total 150 400 Balance 390 116.492 50 Intake: IV 150 250 450 0.9 NS 250 450 Intake, IV Titration 16.492 Amount DOPamine DRIP 800 mg In 16.492 Water For Injection 1 250ml.bag @ 5 MCG/KG/MIN 7.357 mls/hr IV .Q24H [facility] Rx#:[id number] Oral 240 Output: Urine 150 400 Other: Voiding Method Bedpan Bedpan # Voids 1 GENERAL EXAM: Alert, pleasant, 78-year-old white female, comfortable in no appa rent distress. HEAD: Normocephalic/atraumatic. EYES: Normal reaction of pupils, equal size. Conjunctiva pink, sclera white. NOSE: Clear with pink turbinates. THROAT: No erythema or exudates. NECK: No masses, no JVD, no thyroid enlargement, no adenopathy. CHEST: No chest wall deformity. Symmetrical expansion. LUNGS: Equal air entry with no crackles, wheeze, rhonchi or dullness. Patient has a congested cough CVS: Regular rate and rhythm, normal S1 and S2, no gallops, no murmurs, no rubs ABDOMEN: Soft, nontender. No hepatosplenomegaly, normal bowel sounds, no guarding or rigidity. EXTREMITIES: No clubbing, no edema, no cyanosis, 2+ pulses and upper and lower extremities. MUSCULOSKELETAL: Muscle strength and tone normal. SPINE: No scoliosis or deformity SKIN: No rashes CENTRAL NERVOUS SYSTEM: Alert and oriented -3. No focal deficits, tone is normal in all 4 extremities. PSYCHIATRIC: Alert and oriented -3. Appropriate affect. Intact judgment and insight. Results - Laboratory Findings CBC and BMP: 12/23/18 05:30 12/23/18 05:30 PT/INR, D-dimer PT 9.9 sec (9.0-12.0) 12/22/18 13:29 INR 0.9 (<1.2) 12/22/18 13:29 Abnormal lab findings: Abnormal Labs 12/22/18 12/22/18 12/22/18 13:29 13:29 13:29 WBC 11.1 H Neutrophils # 8.3 H Sodium 136 L Chloride Carbon Dioxide 20 L BUN 28 H Creatinine 1.57 H Glucose 109 H POC Glucose (mg/dL) AST 116 H ALT 54 H Creatine Kinase 825 H CK-MB (CK-2) Troponin I 19.600 H* HDL Cholesterol 12/22/18 12/22/18 12/23/18 13:29 19:06 01:43 WBC Neutrophils # Sodium Chloride Carbon Dioxide BUN Creatinine Glucose POC Glucose (mg/dL) AST ALT Creatine Kinase CK-MB (CK-2) 39.9 H Troponin I 14.300 H* 10.500 H* HDL Cholesterol 0912/23/18 12/23/18 03:46 04:12 05:30 WBC Neutrophils # Sodium Chloride 110 H Carbon Dioxide 17 L BUN 31 H Creatinine 1.34 H Glucose 172 H POC Glucose (mg/dL) 162 H 176 H AST ALT Creatine Kinase CK-MB (CK-2) Troponin I HDL Cholesterol 66 H - Diagnostic Findings Chest x-ray: report reviewed, image reviewed Additional studies: Echocardiogram reviewed, EKG reviewed Assessment and Plan Plan: Assessment: #1. Acute non-ST elevated myocardial infarction involving the inferior wall, patient at a total occlusion of the RCA, with collateral flow #2. Bradycardia and hypotension, related to the above, requiring dopamine infusion and fluid boluses #3. Acute kidney injury, likely related to the above, improving with fluid boluses and dopamine #4. Hyperlipidemia #5. Chronic and ongoing nicotine dependence #6. Anxiety Plan: Continue current medical treatment, wean dopamine, cut down the IV fluids to 75 ML per hour, patient is in sinus mechanism with a rate of 60-65 bpm, no complaints of chest pain, denies shortness of breath, and she does have a congested cough, smoking cessation counseling was completed. Beta-Blockers on hold. Chest x-ray was reviewed and showed no acute pulmonary process. Continue close hemodynamic monitoring, continue monitoring for episodes of chest pain and EKG changes, patient will remain in the intensive care unit. Cardiology is following. I performed a history & physical examination of the patient and discussed their management with my nurse practitioner, Evelyn Palomo. I reviewed the nurse practitioner's note and agree with the documented findings and plan of care. Lung sounds are positive for clear throughout the lung costello. The findings and the impression was discussed with the patient. I attest to the documentation by the nurse practitioner. Time with Patient: Greater than 30
--- NOTE | 2018-12-23 20:33 | PN ---
PROGRESS NOTE DATE OF SERVICE: 12/23/2018. CHIEF COMPLAINT: Acute [place], hypotension and bradycardia. HISTORY OF PRESENT ILLNESS: This lady underwent a stenting of the right coronary. During the night, her blood pressure and pulse dropped and she was moved to ICU. She has improved since. She remains awake and alert without any chest pain, abdominal pain, nausea, vomiting, etc. REVIEW OF SYSTEMS: She denies any other symptoms at this time. PHYSICAL EXAM: Blood pressure is 123/78 with a pulse of 54, respirations are normal. She is afebrile. She is awake and alert and oriented. Chest is clear. Cardiac exam demonstrates sinus rhythm. Abdomen is soft, nontender. Extremities are normal. IMPRESSION: 1. Acute myocardial infarction. 2. Chronic obstructive pulmonary disease. 3. Hypotension. 4. Bradycardia. PLAN: Beta blockers have been stopped and we will continue to follow with Cardiology. She is much more stable now than she was during the night. MMODL / IJN: [id number] /
[2018-12-23] MEDS: ALPRAZolam 0.5 MG TAB PO PRN (21:00)
[2018-12-23] MEDS: HYDROcodone/APAP 7.5-325MG 1 EACH TAB PO PRN (21:00)
[2018-12-23] MEDS: FLUoxetine HCL 20 MG CAP PO SCH (21:00)
[2018-12-24 04:58] LABS: Basophils % (A) 0 %; Eosinophils # (A) 0.1 k/uL (0-0.7); Eosinophils % (A) 1 %; HCT 30.2 % (34.0-46.0); HGB 10.1 gm/dL (11.4-16.0); Lymphocytes # (A) 2.2 k/uL (1.0-4.8); Lymphocytes % (A) 22 %; MCH 31.9 pg (25.0-35.0); MCHC 33.4 g/dL (31.0-37.0); MCV 95.5 fL (80.0-100.0); Mean Platelet Volume 6.3; Monocytes # (A) 0.7 k/uL (0-1.0); Monocytes % (A) 7 %; Neutrophils # (A) 7.1 k/uL (1.3-7.7); Neutrophils % (A) 69 %; Platelet Count 238 k/uL (150-450); RBC 3.16 m/uL (3.80-5.40); RDW 12.5 % (11.5-15.5); WBC 10.2 k/uL (3.8-10.6)
[2018-12-24 05:11] LABS: Calcium 8.4 mg/dL (8.4-10.2); Potassium 4.1 mmol/L (3.5-5.1)
[2018-12-24] MEDS: DOPamine DRIP 800 MG in WATER FOR INJECTION 1 250ML.BAG IV SCH (06:18)
[2018-12-24] MEDS: ASPIRIN 325 MG TAB PO SCH (08:59)
[2018-12-24] MEDS: PANTOPRAZOLE 40 MG TABLET PO SCH (08:59)
[2018-12-24] MEDS: ATORVASTATIN 80 MG TAB PO SCH (08:59)
--- NOTE | 2018-12-24 10:26 | P.PN ---
Subjective Progress Note Date: 12/24/18 This is a 78-year-old female who was admitted yesterday after seen by PCP with complaints of chest pain and EKG evidence of subacute inferior wall NC. Her troponin was 19. EKG showed a junctional rhythm also. Cardiac catheterization revealed total occlusion of the RCA at the ostium. Could not engage the ostium. The left coronary system is normal and provides rich collaterals to the RCA. Patient was admitted to the floor. She did get small dose of Lopressor. Patient a bradycardia and hypotension last night. She apparently she also received [place]. Patient was on dopamine and her blood pressure has stabilized. We will discontinue Lopressor and also any nitrates. Continue with aspirin. Slowly titrated down dopamine. Chest x-ray showed normal findings without any evidence of CHF. Lungs appeared to be clear. Heart is regular. Patient activity to be increased. 12/24/2018: This patient is admitted with subacute inferior wall NC. Cardiac catheterization revealed total occlusion of the RCA at the origin. No stump could be identified. Had good collateral from the left coronary system. Patient received beta reese and developed a severe bradycardia and hypotension. She required dopamine infusion. Patient is off dopamine. Seems to be doing well clinically. Heart rate in the 60s. Blood pressure is in the 100s. Patient is being transferred to stepdown unit. He patient remains stable will be discharged home tomorrow Objective - Vital Signs Vital signs: Vital Signs Temp 97.8 F 12/24/18 04:00 Pulse 62 12/24/18 10:00 Resp 15 12/24/18 10:00 BP 105/69 12/24/18 10:00 Pulse Ox 96 12/24/18 09:00 Intake & Output 12/23/18 12/24/18 12/24/18 18:59 06:59 18:59 Intake Total 0669.958 3021 75 Output Total 400 550 Balance 767.055 475 75 Weight 77.6 kg Intake: IV 1125 825 75 0.9 NS 1125 825 75 Intake, IV Titration 42.055 Amount DOPamine DRIP 800 mg In 42.055 Water For Injection 1 250ml.bag @ 5 MCG/KG/MIN 7.357 mls/hr IV .Q24H [facility] Rx#:[id number] Blood Product 200 Output: Urine 400 550 Other: Voiding Method Bedside Commode Bedside Commode Bedside Commode # Voids 1 - Exam GENERAL EXAM: Patient is alert and oriented and doesn't appear to be in any acute distress HEENT: Normocephalic. Normal reaction of pupils, equal size, normal range of extraocular motion. No erythema or exudates in the throat. NECK: No masses, no nuchal rigidity. CHEST: No chest wall deformity. LUNGS: Equal air entry with no crackles or wheeze. HEART: S1 and S2 normal with no audible mumurs or gallops. Regular rhythm, femorals equal on both sides.. ABDOMEN: No hepatosplenomegaly, normal bowel sounds, no guarding or rigidity. SKIN: No rashes CENTRAL NERVOUS SYSTEM: No focal deficits. EXTREMITIES: No cyanosis, clubbing or edema. - Labs CBC & Chem 7: 12/24/18 04:42 12/24/18 04:42 Labs: Abnormal Lab Results - Last 24 Hours (Table) 12/24/18 12/24/18 Range/Units 04:42 04:42 RBC 3.16 L (3.80-5.40) m/uL Hgb 10.1 L (11.4-16.0) gm/dL Hct 30.2 L (34.0-46.0) % Chloride 114 H (98-107) mmol/L Carbon Dioxide 19 L (22-30) mmol/L BUN 28 H (7-17) mg/dL Creatinine 1.11 H (0.52-1.04) mg/dL Glucose 101 H (74-99) mg/dL Assessment and Plan (1) Acute NC, inferior wall Current Visit: Yes Status: Acute Code(s): I21.19 - STEMI INVOLVING OTH CORONARY ARTERY OF INFERIOR WALL SNOMED Code(s): 93202314 (2) Hypotension Current Visit: Yes Status: Acute Code(s): I95.9 - HYPOTENSION, UNSPECIFIED SNOMED Code(s): 16901593 (3) Smoking Current Visit: Yes Status: Acute Code(s): F17.200 - NICOTINE DEPENDENCE, UNSPECIFIED, UNCOMPLICATED SNOMED Code(s): 72699647 (4) Renal failure Current Visit: Yes Status: Acute Code(s): N19 - UNSPECIFIED KIDNEY FAILURE SNOMED Code(s): 08004397 (5) Hypercholesterolemia Current Visit: Yes Status: Acute Code(s): E78.00 - PURE HYPERCHOLESTEROLEMIA, UNSPECIFIED SNOMED Code(s): 34733420 (6) Bradycardia Current Visit: Yes Status: Acute Code(s): R00.1 - BRADYCARDIA, UNSPECIFIED SNOMED Code(s): 94543331 Plan: Patient is currently stable. Being transferred to stepdown unit. Increase activity. If stable, she'll be discharged home tomorrow
--- NOTE | 2018-12-24 11:08 | ECHOF ---
Referral Reason:Post Cath MEASUREMENTS -------- HEIGHT: 167.6 cm WEIGHT: 78.5 kg BP: 108/60 RVIDd: 3.7 cm (< 3.3) IVSd: 1.8 cm (0.6 - 1.1) LVIDd: 3.8 cm (3.9 - 5.3) LVPWd: 1.6 cm (0.6 - 1.1) IVSs: 2.2 cm LVIDs: 2.7 cm LVPWs: 2.0 cm LAESV Index (A-L): 34.65 ml/m Ao Diam: 3.2 cm (2.0 - 3.7) AV Cusp: 1.6 cm (1.5 - 2.6) LA Diam: 4.2 cm (2.7 - 3.8) EPSS: 0.7 cm MV E Ron: 1.07 m/s MV DecT: 232 ms MV A Ron: 1.18 m/s MV E/A Ratio: 0.91 RAP: 20.00 mmHg RVSP: 59.56 mmHg MV EF SLOPE: 56.81 mm/s (70 - 150) MV EXCURSION: 1.56 cm (> 18.000) FINDINGS -------- Sinus rhythm. This was a technically adequate study. The left ventricular size is normal. There is severe concentric left ventricular hypertrophy. Ove rall left ventricular systolic function is low-normal with, an EF between 50 - 55 %. Restrictive LV filling pattern, consistent with elevated LA pressure 22.63. The right ventricle is mildly enlarged. LA is moderately dilated 34-39 ml/m2 The right atrium is mildly enlarged. Mobile interatrial septum. There is mild aortic valve sclerosis. There is no evidence of aortic regurgitation. There is no e vidence of aortic stenosis. Mild mitral annular calcification present. Cxjq-[id number] mitral regurgitation is present. Moderate to severe tricuspid regurgitation present. There is moderate to severe pulmonary hypertens ion. The right ventricular systolic pressure, as measured by Doppler, is 59.56mmHg. There is no pulmonic regurgitation present. The aortic root size is normal. The inferior vena cava is dilated with poor inspiratory collapse which is consistent with estimated r ight atrial pressure of 20 mmHg. There is no pericardial effusion. CONCLUSIONS -------- 1. Sinus rhythm. 2. The left ventricular size is normal. 3. There is severe concentric left ventricular hypertrophy. 4. Overall left ventricular systolic function is low-normal with, an EF between 50 - 55 %. 5. Restrictive LV filling pattern, consistent with elevated LA pressure 22.63. 6. The right ventricle is mildly enlarged. 7. LA is moderately dilated 34-39 ml/m2 8. The right atrium is mildly enlarged. 9. Mobile interatrial septum. 10. There is mild aortic valve sclerosis. 11. There is no evidence of aortic regurgitation. 12. There is no evidence of aortic stenosis. 13. Mild mitral annular calcification present. 14. Vtjw-eu-uppypajn mitral regurgitation is present. 15. Moderate to severe tricuspid regurgitation present. 16. There is moderate to severe pulmonary hypertension. 17. There is no pulmonic regurgitation present. 18. The aortic root size is normal. 19. The inferior vena cava is dilated with poor inspiratory collapse which is consistent with estimat ed right atrial pressure of 20 mmHg. 20. There is no pericardial effusion. ACCOUNTANT SYSTEMS: Patricia Craig RDCS
[2018-12-24] MEDS: SODIUM CHLORIDE 0.9% 1,000 ML IV SCH (11:51)
[2018-12-24] MEDS: ALPRAZolam 0.5 MG TAB PO PRN ×2 (12:05→21:55)
[2018-12-24] MEDS: IBUPROFEN 800 MG TAB PO PRN (12:05)
--- NOTE | 2018-12-24 19:01 | PN ---
PROGRESS NOTE CHIEF COMPLAINT: Myocardial infarction. HISTORY OF PRESENT ILLNESS: This lady is doing well today. Blood pressure and pulse have been stable. She has had no chest pain, shortness of breath, etc. PHYSICAL EXAMINATION: Her chest is clear. Cardiac exam is normal. The abdomen is soft, nontender. Extremities are normal. IMPRESSION: Status post myocardial infarction and stenting of the right coronary artery. PLAN: She will probably go home tomorrow. MMODL / IJN: [id number] /
[2018-12-24] MEDS: HYDROcodone/APAP 7.5-325MG 1 EACH TAB PO PRN (21:55)
[2018-12-24] MEDS: FLUoxetine HCL 20 MG CAP PO SCH (21:55)
[2018-12-25] MEDS: SODIUM CHLORIDE 0.9% 1,000 ML IV SCH (00:33)
[2018-12-25 05:23] VITALS: RESP 16
[2018-12-25 06:35] LABS: Mean Platelet Volume 7.2; Platelet Count 231 k/uL (150-450)
[2018-12-25] MEDS: PANTOPRAZOLE 40 MG TABLET PO SCH (06:42)
[2018-12-25] MEDS: ASPIRIN 325 MG TAB PO SCH (08:39)
[2018-12-25] MEDS: ATORVASTATIN 80 MG TAB PO SCH (08:39)
[2018-12-25 08:42] VITALS: TEMP 98
--- NOTE | 2018-12-25 13:17 | P.PN ---
Subjective Progress Note Date: 12/25/18 Principal diagnosis: Non-ST segment elevation myocardial infarction, hypotension, bradycardia This is a 78-year-old white female patient of Dr. Elena with past medical history of hyperlipidemia, very heavy smoker, anxiety, chronic back pain, who presented to the hospital on 12/22/2018 with complaints of shortness of breath, chest pain, dizziness, and heaviness in the arms. Patient was also diaphoretic, and she thought she may . Patient apparently has been experiencing fatigue and exertional shortness of breath for the last month. She went to see Dr. Elena and EKG showed evidence of possible subacute inferior wall myocardial infarction with persistent mild ST elevation and Q waves in the inferior leads. Patient's troponins were elevated at 19.6, 14.3, and 10.5, proBNP was elevated at 7500. Echocardiogram showed normal left ventricular systolic function with an EF of 60-65%, mild aortic sclerosis, trace MR, mild TR, and PA systolic was less than 35 mmHg. Chest x-ray was completed showing no acute pulmonary process. Patient had a cardiac cath yesterday on 12/22/2018, and patient was found to have total occlusion of the RCA, he was a calcified vessel, and now there were collaterals from the left and the right. No intervention. Medical management initiated. Apparently last night patient developed hypotension and bradycardia with junctional rhythm. Patient was transferred to the intensive care unit, received a fluid bolus of 1 L, and maintenance IV fluids at 125 ML per hour. Dopamine was started at 5 mics per kilo per minute. She lab work showed acute kidney injury, with BUN of 28 and creatinine of 1.57 on admission slightly improved on today's labs, patient is seen in intensive care unit this morning, she is awake and alert, oriented 3, denies any chest pain, remains on dopamine drip at the same rate, and IV fluids, she is in sinus mechanism with a rate of 60-65, denies any breathing difficulty, she is nonoliguric, no specific complaints. Lung sounds reveal some congestion, patient has a congested cough, she is a chronic smoker. The patient is seen today 12/25/2018 in follow-up on the selective care unit. She is currently sitting up in bed. Awake and alert in no acute distress. No chest pain or palpitations. No cough or congestion. No recurrent bradycardia. On room air. Objective - Vital Signs Vital signs: Vital Signs Temp 98 F 12/25/18 08:30 Pulse 72 12/25/18 08:30 Resp 16 12/25/18 08:30 BP 130/85 12/25/18 08:30 Pulse Ox 96 12/25/18 08:30 Intake & Output 12/24/18 12/25/18 12/25/18 18:59 06:59 18:59 Intake Total 675 Output Total 200 700 Balance 475 -700 Weight 86.5 kg Intake: IV 75 0.9 NS 75 Oral 600 Output: Urine 200 700 Other: Voiding Method Bedside Commode Toilet Toilet # Voids 2 1 - Exam GENERAL EXAM: Alert, 78-year-old female patient comfortable in no apparent distress. On room air. HEAD: Normocephalic. EYES: Normal reaction of pupils, equal size. NOSE: Clear with pink turbinates. THROAT: No erythema or exudates. NECK: No masses, no JVD. CHEST: No chest wall deformity. LUNGS: Equal air entry with no crackles, wheeze, rhonchi or dullness. CVS: S1 and S2 normal with no audible murmur, regular rhythm. ABDOMEN: No hepatosplenomegaly, normal bowel sounds, no guarding or rigidity. SPINE: No scoliosis or deformity SKIN: No rashes CENTRAL NERVOUS SYSTEM: No focal deficits, tone is normal in all 4 extremities. EXTREMITIES: There is no peripheral edema. No clubbing, no cyanosis. Peripheral pulses are intact. - Labs CBC & Chem 7: 12/25/18 05:54 12/24/18 04:42 Assessment and Plan Assessment: Assessment: #1. Acute non-ST elevated myocardial infarction involving the inferior wall, patient at a total occlusion of the RCA, with collateral flow #2. Bradycardia and hypotension, related to the above, requiring dopamine infusion and fluid boluses #3. Acute kidney injury, likely related to the above, improving with fluid boluses and dopamine #4. Hyperlipidemia #5. Chronic and ongoing nicotine dependence #6. Anxiety Plan: The patient was seen and evaluated by Dr. Chong. She remains stable from the pulmonary and critical care standpoint. We will see her on as-needed basis. I, the cosigning physician, performed a history & physical examination of the patient. Lungs sounds are clear. Maintaining good O2 saturations in the 90s on room air. I discussed the assessment and plan of care with my nurse practitioner, Edna Mendoza. I attest to the above note as dictated by her.
[2018-12-25] MEDS: ALPRAZolam 0.5 MG TAB PO PRN (13:43)
[2018-12-25] MEDS ORDERED: METOPROLOL TARTRATE 25 MG TAB PO SCH (14:00)
[2018-12-25] MEDS ORDERED: CLOPIDOGREL 75 MG TAB PO SCH (14:00)
--- NOTE | 2018-12-25 16:31 | PN ---
PROGRESS NOTE Mrs. Mckenzie is a 78-year-old female who presented with a subacute myocardial infarction with totally occluded right coronary artery. She underwent cardiac catheterization by Dr. Mann and decision was made to treat her medically. She is doing well this morning. Anxious to go home. She is denying any chest pain. She denies any dizziness or palpitations. She denies any nausea. She continues to be on aspirin once a day, Lipitor 80 mg daily. PHYSICAL EXAMINATION: Blood pressure 130/80 with a heart rate in the 70s. LUNGS: No wheezes. HEART: Regular rate and rhythm. S1, S2. No S3. No rub. ABDOMEN: Soft, nontender. EXTREMITIES: No edema. IMPRESSION: 1. Inferior wall myocardial infarction with occluded right coronary artery. 2. Hyperlipidemia. 3. History of smoking. RECOMMENDATIONS: I will add to her regimen Plavix 75 mg daily as well as metoprolol tartrate 25 mg twice a day. She should be able to be discharged home today and follow up as an outpatient with Dr. Mann. MMGREGORYL / GENIN: [id number] /
[2018-12-25 16:46] VITALS: BP 128/68; PULSE 52
--- NOTE | 2018-12-25 18:02 | DS ---
DISCHARGE SUMMARY CHIEF COMPLAINT: Acute AR. HISTORY OF PRESENT ILLNESS/PHYSICAL EXAMINATION: Details of this lady's history and physical can be found in the initial workup. LABORATORY STUDIES: While she was in the hospital she had laboratory studies, details of which can be found in the laboratory section of her chart. COURSE IN THE HOSPITAL: After admission she was placed on bedrest, started on intravenous fluids and taken to the slabber, where she was found to have an occluded RCA. This was dilated and stented and she did well. During her first night in the hospital she became bradycardic and hypotensive. The beta reese was stopped and she was moved to ICU. She redeveloped normal blood pressure and pulse. She did well for the balance of her hospitalization. It was felt that she could go home on December 25. She will be put back on a low dose of Lopressor before going home to make sure she tolerates it. She will be seen in the office in several days. FINAL DIAGNOSES: 1. Acute inferior myocardial infarction. 2. Hypotension. 3. Bradycardia. 4. Chronic obstructive pulmonary disease. OPERATIONS: Cardiac cath and stenting of the RCA. CONSULTATION: Cardiology. She is improved. MMODL / IJN: [id number] /
[2018-12-26] MEDS ORDERED: ASPIRIN 81 MG PO SCH (09:00)
== END 2018-12-25 17:25 | disposition home or self-care (01) | DRG 281 ==
LOC: EC 12:15 → 3SCARD 16:15 → 2SICU 12-23 05:22 → 3SCARD 12-24 11:26
PROVIDERS: ADMIT Family Medicine; ATTEND Family Medicine
PROC: B2111ZZ Fluoroscopy of Multiple Coronary Arteries using Low Osmolar Contrast (ICD-10-PCS; principal; 2018-12-22 16:30)
PROC: 4A023N7 Measurement of Cardiac Sampling and Pressure, Left Heart, Percutaneous Approach (ICD-10-PCS; principal; 2018-12-22 16:30)
DX: I21.19 ST elevation (STEMI) myocardial infarction involving other coronary artery of inferior wall (principal); N17.9 Acute kidney failure, unspecified; I95.9 Hypotension, unspecified; E78.00 Pure hypercholesterolemia, unspecified; E78.5 Hyperlipidemia, unspecified; R00.1 Bradycardia, unspecified; I08.3 Combined rheumatic disorders of mitral, aortic and tricuspid valves; F17.200 Nicotine dependence, unspecified, uncomplicated; J44.9 Chronic obstructive pulmonary disease, unspecified; I25.82 Chronic total occlusion of coronary artery; M54.9 Dorsalgia, unspecified; G89.29 Other chronic pain; M19.90 Unspecified osteoarthritis, unspecified site; F17.210 Nicotine dependence, cigarettes, uncomplicated; F41.9 Anxiety disorder, unspecified; Z90.710 Acquired absence of both cervix and uterus; Z79.899 Other long term (current) drug therapy; Z91.041 Radiographic dye allergy status; Z90.89 Acquired absence of other organs
CPT/HCPCS: 36415; 71045; 71046; 80048; 80053; 82465; 82550; 82553; 83718; 83735; 83880; 84478; 84484; 85025; 85049; 85610; 85730; 93005; 93306; 93458; 96360; 96361; 99291

== ENCOUNTER → 2019-12-23 | Outpatient (CLI) | payer MEDICARE, BC ==
--- NOTE | 2019-12-23 11:14 | FL ---
EXAMINATION TYPE: FL barium swallow DATE OF EXAM: 12/23/2019 COMPARISON: None HISTORY: Dysphasia, choking sensation TECHNIQUE: A double air contrast UGI study is performed. Barium was utilized given the patient's all ergy to iodine contrast. FINDINGS: Fluoroscopy time: 41 seconds Images: 31 slight Contrast passes from the distal esophagus through the gastroesophageal junction with no significant h esitancy. Esophagus dilates to normal caliber has normal contour to the gastroesophageal junction Tertiary contractions are within the distal esophagus. There is a small self reducing sliding type hi atal hernia present. No reflux was noted. IMPRESSIONS: 1. Presbyesophagus. 2. Small self reducing sliding type hiatal hernia.
== END | disposition home or self-care (01) ==
LOC: RADUSWWP 09:40
PROVIDERS: ATTEND Family Medicine
DX: K44.9 Diaphragmatic hernia without obstruction or gangrene (principal); K22.8 Other specified diseases of esophagus; Z88.8 Allergy status to other drugs, medicaments and biological substances; Z91.041 Radiographic dye allergy status
CPT/HCPCS: 74220

== ENCOUNTER → 2021-12-16 | Outpatient (CLI) | payer MEDICARE, BC ==
--- NOTE | 2022-01-21 09:50 | EM ---
30 Day Event monitor note: Patient wore an event monitor for 30 days from 12/16/2021 through 01/10/2022. Findings: Patient's baseline heart rate was sinus rhythm. There was no ventricular tachycardia episodes. There were no significant pauses greater than 2 seconds. There were frequent episodes of PVCs and PACs. There were 3 episodes of atrial fibrillation, one occurring on 12/22 which was asymptomatic for approximately 2 minutes with heart rates 170 and second episode occurring 12/24 with heart rates 170s to 200s which was asymptomatic and it lasted 3 minutes and a third episode with heart rates in the 80s to 110s 12/24 for 90 seconds. Patient activated events predominantly corresponding with normal sinus rhythm and rarely with PVCs. Conclusions: 30 day event monitor showing frequent PVCs and PACs. 3 episodes of asymptomatic A. fib with heart rates 110s up to 180s predominantly lasting 2-3 minutes Patient activated events mainly corresponding with PVCs and sinus rhythm [facility]
== END | disposition home or self-care (01) ==
LOC: RADECHMAIN 07:54
PROVIDERS: ATTEND Family Medicine
DX: I25.10 Atherosclerotic heart disease of native coronary artery without angina pectoris (principal); I95.9 Hypotension, unspecified; R55 Syncope and collapse
CPT/HCPCS: 93270

== ENCOUNTER → 2022-06-27 | Outpatient (CLI) | payer MEDICARE, BC ==
[2022-06-27 14:24] VITALS: BP 102/62; PULSE 62; RESP 18; TEMP 98.3
--- NOTE | 2022-06-27 15:08 | P.GSHP ---
History of Present Illness H&P Date: 06/27/22 Chief Complaint: right breast lesion Mary Ann is an 82 year old white female seen in consultation for Dr. Elena regarding a right breast lesion. She had a right breast lesion removed about 30 years ago and since than she has noted intermittant infection in the breast. In November she had an infection treated in her right breast, which drained spontaneously. The patient approximately 2 weeks ago was recommended to come here for evaluation. She is not complaining of any other lumps masses or nodules of concern in either breast. She has not had a mammogram since 2017. She is not complaining of any trauma or infection in the breast. Caffiene: 1 cup/day nicotine: none stopped 5 years ago, use to smoke 10 cigarettes/day chocolate: occasional BCP: 3 years Family History: mother: breast cancer 40's Hormonal History: menarche: 12 M1, breast fed: no, age at first : 20 menopause: hysterectomy at 37 for fibroids Surgical History: broken back hysterectomy tonsil lump right breast twice mastoid infection twice left ear Medical History: fracture pelvis past year sciatic pain CO: on eliquis Social History: nicotine: none alcohol: seldom drugs: none - Constitutional Constitutional: Denies chills, Denies fever - EENT Eyes: denies blurred vision, denies pain Ears: bilateral: decreased hearing, deny: tinnitus - Breasts Breasts: bilateral: as per HPI - Cardiovascular Cardiovascular: Denies chest pain, Denies shortness of breath - Respiratory Respiratory: Reports cough - Gastrointestinal Gastrointestinal: Reports constipation, Denies abdominal pain, Denies diarrhea, Denies nausea, Denies vomiting - Genitourinary (Female) Comment: UTI - Menstruation Menstruation: Reports post hysterectomy - Musculoskeletal Musculoskeletal: Reports myalgias - Integumentary Integumentary: Denies pruritus, Denies rash - Neurological Neurological: Denies numbness, Denies weakness - Psychiatric Psychiatric: Reports anxiety, Reports depression - Endocrine Endocrine: Denies fatigue, Denies weight change - Hematologic/Lymphatic Comment: eliquis - Allergic/Immunologic Allergic/Immunologic: Reports as per HPI Past Medical History Past Medical History: Coronary Artery Disease (CAD), Myocardial Infarction (CO) Additional Past Medical History / Comment(s): chronic back pain, hallucinations causing recent hospitalizations, broken pelvic bone Last Myocardial Infarction Date:: 12/21/2019 History of Any Multi-Drug Resistant Organisms: None Reported Past Surgical History: Heart Catheterization, Hysterectomy, Tonsillectomy Past Anesthesia/Blood Transfusion Reactions: No Reported Reaction Past Psychological History: Anxiety Smoking Status: Former smoker Past Alcohol Use History: Occasional Additional Past Alcohol Use History / Comment(s): quit smoking in 2019 Past Drug Use History: None Reported - Past Family History Father Family Medical History: No Reported History Mother Family Medical History: No Reported History Medications and Allergies Home Medications Medication Instructions Recorded Confirmed Type FLUoxetine HCL [PROzac] 40 mg PO HS 12/22/18 06/27/22 History Aspirin 81 mg PO DAILY #100 chew 12/25/18 06/27/22 Rx Atorvastatin [Lipitor] 80 mg PO DAILY #100 tab 12/25/18 06/27/22 Rx Acetaminophen [Tylenol] 500 mg PO Q8HR PRN 08/15/21 06/27/22 History Pregabalin [Lyrica] 100 mg PO BID 08/15/21 06/27/22 History ALPRAZolam [Xanax] 1 mg PO Q8HR PRN 08/22/21 06/27/22 History Cyclobenzaprine [Flexeril] 10 mg PO HS 08/22/21 06/27/22 History Ergocalciferol [Vitamin D2 (1250 50,000 unit PO DAILY 08/22/21 06/27/22 History Mcg = 74103 Iu)] Metoprolol Tartrate [Lopressor] 25 mg PO DAILY 08/22/21 06/27/22 History Nitroglycerin Sl Tabs [Nitrostat] 0.4 mg SUBLINGUAL Q5M PRN 08/22/21 06/27/22 History Allergies Allergy/AdvReac Type Severity Reaction Status Date / Time Iodinated Contrast Media Allergy Rash/Hives Verified 08/22/21 16:44 Surgical - Exam Vital Signs Temp Pulse Resp BP Pulse Ox 98.3 F 62 18 102/62 93 L 06/27/22 14:19 06/27/22 14:19 06/27/22 14:19 06/27/22 14:06/27/22 14:19 - General no distress - Eyes normal ocular movement - Neck trachea midline - Respiratory normal expansion - Cardiovascular Rhythm: regular Heart Sounds: normal: S1, S2 - Abdomen Abdomen: soft, non tender, no guarding, no rigid, no rebound - Integumentary normal turgor - Neurologic no disoriented, no combative - Musculoskeletal uses a cane to walk at times - Psychiatric oriented to time, oriented to person, oriented to place, speech is normal, memory intact Breast Exam: BRA: 38DD Inspection: Bilateral grade 2/3 ptosis Palpation: Right breast multiple positional exam marked fullness 12 o'clock position, fibrocystic changes, approximately a 1 cm area of excoriation at the 12 o'clock position Right axilla: No specific active adenopathy of concern Left breast: Multiple positional exam dense for breast, fibrocystic changes, and no specific masses or nodules of concern Left axilla: No adenopathy of concern Results Note Dr. Elena [id number] reviewed Assessment and Plan Assessment: Impression: Right breast open wound at 12 to 1 o'clock position with drainage of some purulent/blood-tinged liquid Patient due for bilateral mammogram Patient prior right breast biopsy about 30 years ago Plan: Bilateral mammogram/right breast ultrasound Follow up after studies are done Cc: Dr. Elena
== END ==
LOC: WWCWWP 13:31
PROVIDERS: ATTEND Surgery
DX: Z85.3 Personal history of malignant neoplasm of breast (principal); R92.8 Other abnormal and inconclusive findings on diagnostic imaging of breast; Z80.3 Family history of malignant neoplasm of breast; I25.10 Atherosclerotic heart disease of native coronary artery without angina pectoris; I25.2 Old myocardial infarction; Z79.82 Long term (current) use of aspirin; Z90.710 Acquired absence of both cervix and uterus; Z91.041 Radiographic dye allergy status; F17.200 Nicotine dependence, unspecified, uncomplicated

== ENCOUNTER → 2022-07-04 | Outpatient (CLI) | payer MEDICARE, BC ==
--- NOTE | 2022-07-04 14:14 | MM ---
Reason for Exam: Clinical finding. Last mammogram was performed 6 year(s) and 3 month(s) ago. Indicated Problems: Bloody discharge of the right side. Patient History: Menarche at age 12. First Full-Term at age 20. Hysterectomy at age 37. Postmenopausal. Benign Core Biopsy on the right side. Benign Excisional Biopsy on the right side. Benign Excisional Biopsy on the right side. 05/10/1998, Benign Stereotactic Core Biopsy on the right side. Mother had breast cancer. Risk Values: Vania 5 year model risk: 4.5%. NCI Lifetime model risk: 5.9%. Tissue Density: There are scattered fibroglandular densities. Findings: Analyzed By CAD. No suspicious mass or architectural distortion or worrisome calcifications within the left breast. No suspicious calcifications within the right breast. Biopsy clip within the right breast. There is abnormal skin thickening of the right breast near the nipple at site of patient's palpable abnormality. No definitive mass identified. Overall Assessment: Incomplete: need additional imaging evaluation, BI-RAD 0 Management: Diagnostic Breast Ultrasound of the right breast. A clinical breast exam by your physician is recommended on an annual basis and results should be correlated with mammographic findings. This exam should not preclude additional follow-up of suspicious palpable abnormalities. Results were given to the patient verbally at the time of exam. Electronically signed and approved by: Selvin Ivy D.O.
--- NOTE | 2022-07-04 14:42 | USB ---
Reason for Exam: Clinical finding. Patient History: Menarche at age 12. First Full-Term at age 20. Hysterectomy at age 37. Postmenopausal. Benign Core Biopsy on the right side. Benign Excisional Biopsy on the right side. Benign Excisional Biopsy on the right side. 05/10/1998, Benign Stereotactic Core Biopsy on the right side. Mother had breast cancer. Risk Values: Vania 5 year model risk: 4.5%. NCI Lifetime model risk: 5.9%. Technique: Method: Targeted. Prior Study Comparison: 04/09/2016 Bilateral Screening Mammogram, [facility]. 04/11/2016 Left Diagnostic Mammogram, [facility]. 10/15/2016 Left Diagnostic Mammogram, [facility]. Findings: The periareolar of the right breast, the axilla of the right breast and the retroareolar of the right breast were scanned. Targeted ultrasound of the right breast near the nipple was performed with additional evaluation of the axilla.. There is a elongated complex fluid collection 1 cm from the nipple at 12:00 measuring 0.9 cm in length. No internal color flow or surrounding hyperemia identified. This could represent a hematoma versus seroma versus abscess in the corporate clinical setting. Overall Assessment: Benign, BI-RAD 2 Management: Screening Mammogram of both breasts in 1 year. clinical breast exam by your physician is recommended on an annual basis and results should be correlated with mammographic findings. This exam should not preclude additional follow-up of suspicious palpable abnormalities. Results were given to the patient verbally at the time of exam. Electronically signed and approved by: Selvin Ivy D.O.
== END | disposition home or self-care (01) ==
LOC: RADMAMWWP 13:43
PROVIDERS: ATTEND Surgery
DX: N64.52 Nipple discharge (principal); Z78.0 Asymptomatic menopausal state; Z80.3 Family history of malignant neoplasm of breast
CPT/HCPCS: 77066; 76642; G0279; 77062

== ENCOUNTER → 2022-07-11 | Outpatient (CLI) | payer MEDICARE, BC ==
[2022-07-11 11:22] VITALS: BP 119/62; PULSE 74; RESP 18; TEMP 98.3
--- NOTE | 2022-07-11 11:38 | P.PN ---
Subjective Progress Note Date: 07/11/22 06-27-22 right breast lesion Mary Ann is an 82 year old white female seen in consultation for Dr. Elena regarding a right breast lesion. She had a right breast lesion removed about 30 years ago and since than she has noted intermittant infection in the breast. In November she had an infection treated in her right breast, which drained spontaneously. The patient approximately 2 weeks ago was recommended to come here for evaluation. She is not complaining of any other lumps masses or nodules of concern in either breast. She has not had a mammogram since 2017. She is not complaining of any trauma or infection in the breast. 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 Vania Risk 5 years: 4.5% patient declined chemoprevention Caffiene: 1 cup/day nicotine: none stopped 5 years ago, use to smoke 10 cigarettes/day chocolate: occasional BCP: 3 years Family History: mother: breast cancer 40's Hormonal History: menarche: 12 M1, breast fed: no, age at first : 20 menopause: hysterectomy at 37 for fibroids Surgical History: broken back hysterectomy tonsil lump right breast twice mastoid infection twice left ear Medical History: fracture pelvis past year sciatic pain [place]: on eliquis Social History: nicotine: none alcohol: seldom drugs: none - Constitutional Constitutional: Denies chills, Denies fever - EENT Eyes: denies blurred vision, denies pain Ears: bilateral: decreased hearing, deny: tinnitus - Breasts Breasts: bilateral: as per HPI - Cardiovascular Cardiovascular: Denies chest pain, Denies shortness of breath - Respiratory Respiratory: Reports cough - Gastrointestinal Gastrointestinal: Reports constipation, Denies abdominal pain, Denies diarrhea, Denies nausea, Denies vomiting - Genitourinary (Female) Comment: UTI - Menstruation Menstruation: Reports post hysterectomy - Musculoskeletal Musculoskeletal: Reports myalgias - Integumentary Integumentary: Denies pruritus, Denies rash - Neurological Neurological: Denies numbness, Denies weakness - Psychiatric Psychiatric: Reports anxiety, Reports depression - Endocrine Endocrine: Denies fatigue, Denies weight change - Hematologic/Lymphatic Comment: eliquis - Allergic/Immunologic Allergic/Immunologic: Reports as per HPI Past Medical History Past Medical History: Coronary Artery Disease (CAD), Myocardial Infarction ([place]) Additional Past Medical History / Comment(s): chronic back pain, hallucinations causing recent hospitalizations, broken pelvic bone Last Myocardial Infarction Date:: 12/21/2019 History of Any Multi-Drug Resistant Organisms: None Reported Past Surgical History: Heart Catheterization, Hysterectomy, Tonsillectomy Past Anesthesia/Blood Transfusion Reactions: No Reported Reaction Past Psychological History: Anxiety Smoking Status: Former smoker Past Alcohol Use History: Occasional Additional Past Alcohol Use History / Comment(s): quit smoking in 2019 Past Drug Use History: None Reported - Past Family History Father Family Medical History: No Reported History Mother Family Medical History: No Reported History Medications and Allergies Home Medications Medication Instructions Recorded Confirmed Type FLUoxetine HCL [PROzac] 40 mg PO HS 12/22/18 06/27/22 History Aspirin 81 mg PO DAILY #100 chew 12/25/18 06/27/22 Rx Atorvastatin [Lipitor] 80 mg PO DAILY #100 tab 12/25/18 06/27/22 Rx Acetaminophen [Tylenol] 500 mg PO Q8HR PRN 08/15/21 06/27/22 History Pregabalin [Lyrica] 100 mg PO BID 08/15/21 06/27/22 History ALPRAZolam [Xanax] 1 mg PO Q8HR PRN 08/22/21 06/27/22 History Cyclobenzaprine [Flexeril] 10 mg PO HS 08/22/21 06/27/22 History Ergocalciferol [Vitamin D2 (1250 50,000 unit PO DAILY 08/22/21 06/27/22 History Mcg = 31404 Iu)] Metoprolol Tartrate [Lopressor] 25 mg PO DAILY 08/22/21 06/27/22 History Nitroglycerin Sl Tabs [Nitrostat] 0.4 mg SUBLINGUAL Q5M PRN 08/22/21 06/27/22 History Allergies Allergy/AdvReac Type Severity Reaction Status Date / Time Iodinated Contrast Media Allergy Rash/Hives Verified 08/22/21 16:44 Objective - Vital Signs Vital signs: Vital Signs Temp 98.3 F 07/11/22 11:19 Pulse 74 07/11/22 11:19 Resp 18 07/11/22 11:19 BP 119/62 07/11/22 11:19 Pulse Ox 98 07/11/22 11:19 FiO2 Intake & Output 07/10/22 07/11/22 07/11/22 18:59 06:59 18:59 Weight 74.843 kg - Constitutional General appearance: Present: cooperative - EENT Eyes: Present: EOMI ENT: Present: hearing grossly normal - Neck Neck: Present: normal ROM - Respiratory Respiratory: bilateral: CTA - Cardiovascular Rhythm: regular Heart sounds: normal: S1, S2 - Gastrointestinal General gastrointestinal: Present: soft - Integumentary Integumentary: Present: normal turgor - Musculoskeletal Musculoskeletal: Present: gait normal - Psychiatric Psychiatric: Present: A&O x's 3, appropriate affect, intact judgment & insight - Additional findings Additional findings: Breast Exam: BRA: 38DD Inspection: Bilateral grade 2/3 ptosis Palpation: Right breast multiple positional exam marked fullness 12 o'clock position, fibrocystic changes, approximately a 1 cm area of excoriation at the 12 o'clock position no drainage on todays exam Right axilla: No specific active adenopathy of concern Left breast: Multiple positional exam dense for breast, fibrocystic changes, and no specific masses or nodules of concern Left axilla: No adenopathy of concern Assessment and Plan Assessment: Impression: Right breast open wound at 12 to 1 o'clock position with drainage of some purulent/blood-tinged liquid Patient prior right breast biopsy about 30 years ago Plan: Bilateral mammogram/right breast ultrasound done on 07-04-22 BIRAD 2 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 Elena
== END ==
LOC: WWCWWP 10:29
PROVIDERS: ATTEND Surgery
DX: N64.52 Nipple discharge (principal); I25.10 Atherosclerotic heart disease of native coronary artery without angina pectoris; I25.2 Old myocardial infarction; N64.89 Other specified disorders of breast; Z79.82 Long term (current) use of aspirin; Z80.3 Family history of malignant neoplasm of breast; Z90.710 Acquired absence of both cervix and uterus; Z91.041 Radiographic dye allergy status; Z79.01 Long term (current) use of anticoagulants; F17.200 Nicotine dependence, unspecified, uncomplicated

== ENCOUNTER → 2022-10-16 | Outpatient (CLI) | payer MEDICARE, BC ==
[2022-10-16 16:23] VITALS: BP 115/69; PULSE 71; RESP 18; TEMP 98.1
--- NOTE | 2022-10-16 16:35 | P.PN ---
Subjective Progress Note Date: 10/16/22 right breast lesion Mary Ann is an 82 year old white female seen in consultation for Dr. Elena regarding a right breast lesion. She had a right breast lesion removed about 30 years ago and since than she has noted intermittant infection in the breast. In November 2021 she had an infection treated in her right breast, which drained spontaneously. The patient was seen for evaluation 06-27-22. She was not complaining of any other lumps masses or nodules of concern in either breast. She had not had a mammogram since 2016. She was not complaining of any trauma or infection in the breast. 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 Vania Risk 5 years: 4.5% patient declined chemoprevention 10-16-22 The past 10 years the patient has had approximately 4 times that she developed drainage from the near 12:00 area of the right breast. However since her last visit this has completely resolved and is no longer draining. She is not complaining of any new lumps masses or nodules of concern in either breast. Caffiene: 1 cup/day nicotine: none stopped 5 years ago, use to smoke 10 cigarettes/day chocolate: occasional BCP: 3 years Family History: mother: breast cancer 40's Hormonal History: menarche: 12 M1, breast fed: no, age at first : 20 menopause: hysterectomy at 37 for fibroids Surgical History: broken back hysterectomy tonsil lump right breast twice mastoid infection twice left ear Medical History: fracture pelvis past year sciatic pain [place]: on eliquis Social History: nicotine: none alcohol: seldom drugs: none - Constitutional Constitutional: Denies chills, Denies fever - EENT Eyes: denies blurred vision, denies pain Ears: bilateral: decreased hearing, deny: tinnitus - Breasts Breasts: bilateral: as per HPI - Cardiovascular Cardiovascular: Denies chest pain, Denies shortness of breath - Respiratory Respiratory: Reports cough - Gastrointestinal Gastrointestinal: Reports constipation, Denies abdominal pain, Denies diarrhea, Denies nausea, Denies vomiting - Genitourinary (Female) Comment: UTI - Menstruation Menstruation: Reports post hysterectomy - Musculoskeletal Musculoskeletal: Reports myalgias - Integumentary Integumentary: Denies pruritus, Denies rash - Neurological Neurological: Denies numbness, Denies weakness - Psychiatric Psychiatric: Reports anxiety, Reports depression - Endocrine Endocrine: Denies fatigue, Denies weight change - Hematologic/Lymphatic Comment: eliquis - Allergic/Immunologic Allergic/Immunologic: Reports as per HPI Past Medical History Past Medical History: Coronary Artery Disease (CAD), Myocardial Infarction ([place]) Additional Past Medical History / Comment(s): chronic back pain, hallucinations causing recent hospitalizations, broken pelvic bone Last Myocardial Infarction Date:: 12/21/2019 History of Any Multi-Drug Resistant Organisms: None Reported Past Surgical History: Heart Catheterization, Hysterectomy, Tonsillectomy Past Anesthesia/Blood Transfusion Reactions: No Reported Reaction Past Psychological History: Anxiety Smoking Status: Former smoker Past Alcohol Use History: Occasional Additional Past Alcohol Use History / Comment(s): quit smoking in 2019 Past Drug Use History: None Reported - Past Family History Father Family Medical History: No Reported History Mother Family Medical History: No Reported History Medications and Allergies Home Medications Medication Instructions Recorded Confirmed Type FLUoxetine HCL [PROzac] 40 mg PO HS 12/22/18 06/27/22 History Aspirin 81 mg PO DAILY #100 chew 12/25/18 06/27/22 Rx Atorvastatin [Lipitor] 80 mg PO DAILY #100 tab 12/25/18 06/27/22 Rx Acetaminophen [Tylenol] 500 mg PO Q8HR PRN 08/15/21 06/27/22 History Pregabalin [Lyrica] 100 mg PO BID 08/15/21 06/27/22 History ALPRAZolam [Xanax] 1 mg PO Q8HR PRN 08/22/21 06/27/22 History Cyclobenzaprine [Flexeril] 10 mg PO HS 08/22/21 06/27/22 History Ergocalciferol [Vitamin D2 (1250 50,000 unit PO DAILY 08/22/21 06/27/22 History Mcg = 63487 Iu)] Metoprolol Tartrate [Lopressor] 25 mg PO DAILY 08/22/21 06/27/22 History Nitroglycerin Sl Tabs [Nitrostat] 0.4 mg SUBLINGUAL Q5M PRN 08/22/21 06/27/22 History Allergies Allergy/AdvReac Type Severity Reaction Status Date / Time Iodinated Contrast Media Allergy Rash/Hives Verified 08/22/21 16:44 Objective - Vital Signs Vital signs: Vital Signs Temp 98.1 F 10/16/22 16:20 Pulse 71 10/16/22 16:20 Resp 18 10/16/22 16:20 BP 115/69 10/16/22 16:20 Pulse Ox 98 10/16/22 16:20 FiO2 Intake & Output 10/15/22 10/16/22 10/16/22 18:59 06:59 18:59 Weight 74.843 kg - Constitutional General appearance: Present: cooperative - EENT Eyes: Present: EOMI ENT: Present: hearing grossly normal - Neck Neck: Present: normal ROM - Respiratory Respiratory: bilateral: CTA - Cardiovascular Rhythm: regular Heart sounds: normal: S1, S2 - Gastrointestinal General gastrointestinal: Present: soft - Integumentary Integumentary: Present: normal turgor - Musculoskeletal Musculoskeletal: Present: gait normal - Psychiatric Psychiatric: Present: A&O x's 3, appropriate affect, intact judgment & insight - Additional findings Additional findings: Breast Exam: BRA: 38DD Inspection: Bilateral grade 2/3 ptosis Palpation: Right breast multiple positional exam resolved fullness 12 o'clock position, fibrocystic changes, approximately a 1 cm area of excoriation at the 12 o'clock position no drainage on todays exam and completely healed Right axilla: No specific active adenopathy of concern Left breast: Multiple positional exam dense breast, fibrocystic changes, and no specific masses or nodules of concern Left axilla: No adenopathy of concern Assessment and Plan Assessment: Impression: Right breast open wound at 12 to 1 o'clock position with drainage of some purulent/blood-tinged liquid approximately 3 months ago which has subsequently resolved Patient prior right breast biopsy about 30 years ago The patient would like to defer surgery at this time Plan: Bilateral mammogram/right breast ultrasound done on 07-04-22 BIRAD 2 At the present time the patient does not have any active drainage of the right breast. She would like to defer surgery. She is going to follow up with a repeat bilateral mammogram in 1 year with physician exam at that time, if she develops drainage prior to that she will follow up sooner. CC: Dr. Elena
== END ==
LOC: WWCWWP 15:51
PROVIDERS: ATTEND Surgery
DX: N64.89 Other specified disorders of breast (principal); I25.10 Atherosclerotic heart disease of native coronary artery without angina pectoris; F17.200 Nicotine dependence, unspecified, uncomplicated; I25.2 Old myocardial infarction; G89.29 Other chronic pain; Z79.82 Long term (current) use of aspirin; Z80.3 Family history of malignant neoplasm of breast; Z91.041 Radiographic dye allergy status; Z79.01 Long term (current) use of anticoagulants